=== PATIENT | male | born 1960 | race Caucasian/White ===

== ENCOUNTER → 2017-07-31 13:23 | Outpatient (CLI) | payer BC, SELFPAY ==
--- NOTE | 2017-07-31 13:35 | US_ITS ---
US breast RT complete COMPARISON: None INDICATION: Right axillary pain and swelling ORDERING PHYSICIAN: Salvador Meyer MD PATIENT AGE: 57 years FINDINGS: Ultrasound performed of the right axilla shows no obvious cystic lesions or masses. Lymph nodes are present with the largest node measuring 3.5 x 1.5 cm. IMPRESSION: Mildly enlarged right axillary lymph nodes otherwise negative ultrasound of the right axilla. Consider chest CT with contrast for further evaluation for adenopathy
== END ==
PROVIDERS: Family Provider Family Medicine; PCP Family Medicine; Visit Provider Family Medicine
DX: R59.0 Localized enlarged lymph nodes (principal)
CPT/HCPCS: 76641

== ENCOUNTER → 2017-09-02 08:17 | Outpatient (CLI) | payer BC, SELFPAY ==
[2017-09-02 08:47] LABS: Blood Urea Nitrogen 14 mg/dL (7-18); Creatinine,Serum 1.02 mg/dL (0.70-1.30); Estimated Glomerular Filt Rate 75 ml/min (>60); GFR (African American) 90 ML/MIN (>60)
--- NOTE | 2017-09-02 08:58 | CT_ITS ---
CT chest w con HISTORY: Axillary adenopathy, history of colon cancer ITS.REASON: AXILLARY ADENOPATHY ORDERING PHYSICIAN: Salvador Meyer MD PATIENT AGE: 57 years TECHNIQUE: Axial images obtained following the administration of 75 mL of Isovue 370 . Sagittal, and coronal reformatted images are also generated and reviewed. COMPARISON: None FINDINGS: No mediastinal or hilar mass or adenopathy is evident. Normal heart size. No evidence of pericardial effusion. No suspicious pulmonary nodules are evident. There is a small faint opacity in the left upper lobe centrally at 4 mm. Mild dependent changes are present in the posterior hemithoraces bilaterally. No effusions. Upper abdominal images are unremarkable. No axillary adenopathy is evident. There are small lymph nodes in the axilla on both sides. There is minimal stranding of the fat in the right axilla nonspecific. No bony destructive process. Upper abdominal images are unremarkable. IMPRESSION: 1. No axillary or mediastinal or hilar adenopathy. 2. Faint 4 mm nodular opacity left upper lobe centrally nonspecific. Consider 6-12 month follow-up to confirm stability. 3. Otherwise negative CT chest
--- NOTE | 2017-09-02 10:31 | HMH.ITSHM ---
AMLODIPINE MELOXICAM PRAVASTATIN NORECO
== END ==
PROVIDERS: Family Provider Family Medicine; PCP Family Medicine; Visit Provider Family Medicine
DX: R59.0 Localized enlarged lymph nodes (principal)
CPT/HCPCS: 36415; 71260; 82565; 84520; Q9967

== ENCOUNTER 2018-02-01 13:03 | Observation (INO) ==
[2018-02-01 13:20] LABS: Basophils # 0.1 K/mm3 (0-0.2); Basophils % 0.6 % (0.1-2.0); Eosinophils % 0.3 % (0.1-12.0); Hemoglobin 15.6 g/dL (14.1-18.0); Lymphocytes % 18.4 K/mm3 (10-50); Mean Corpuscular Hemoglobin 32.9 pg (27.0-31.2); Mean Corpuscular Volume 86.6 fl (80-94); Mean Platelet Volume 6.7 fl (7.4-10.4); Monocytes # 0.5 K/mm3 (0.1-1.0); Monocytes % 4.9 % (1.7-9.3); Neutrophils # 8.3 K/mm3 (1.8-7.8); Neutrophils % 75.9 % (37.0-80.0); Platelet Count 363 K/mm3 (142-424); Red Blood Count 4.74 M/mm3 (4.60-6.20); Red Cell Distribution Width 12.9 % (11.5-17.5); White Blood Count 10.9 K/mm3 (4.8-10.8)
[2018-02-01 13:20] LABS: Appearance,Urine SL CLOUDY (Clear); Bilirubin,Urine Negative (Negative); Blood, Urine 3+ (Negative); Color,Urine YELLOW (Yellow); Glucose,Urine (UA) Negative (Negative); Ketones,Urine Negative (Negative); Leukocyte Esterase,Urine Negative (Negative); Microscopic, Urine URINE MICROSCOPIC (MICROSCOPIC); Protein,Urine Negative (Negative); Specific Gravity, Urine 1.025 (1.005-1.030); Urobilinogen,Urine 0.2 EU/dl (0.2)
[2018-02-01 13:27] LABS: Bacteria,Urine 1+ /lpf; Mucus,Urine 1+ /lpf; RBC,Urine 20-50 #/hpf (0-3); Squamous Epithelial Cell,Urine Occasional #/hpf (0-5); WBC,Urine Occasional #/hpf (0-3)
[2018-02-01 13:34] LABS: Albumin Level 4.6 gm/dL (3.4-5.0); Albumin/Globulin Ratio 1.1 (1.1-1.8); Anion Gap 14.9 mEq/L (5-15); Bilirubin,Total 0.5 mg/dL (0.2-1.0); Calcium 9.5 mg/dL (8.5-10.1); Globulin 4.3 gm/dl (1.3-3.2); Potassium 3.9 mmoL/L (3.5-5.1); Total Protein,Serum 8.9 gm/dL (6.4-8.2)
--- NOTE | 2018-02-01 14:51 | Emergency Department Note ---
ED Disposition Clinical Impression: Ureteral stone with hydronephrosis, Intractable pain Disposition: Still a Patient Condition on Discharge: Fair Instructions: DI for Acute Abdomen Referrals: Salvador Meyer MD [Primary Care Provider] - - Critical Care Critical Care Time: No Attestation: On 02/01/18, the high probability of a clinically significant, sudden or life threatening deterioration of the following system(s) required my full and direct attention, intervention and personal management. The time I documented below is in addition to time spent performing reported procedures but includes the following listed in this critical care notation. Medical Decision Making - Devendra Inquiry Pt receiving controlled substance: No Devendra was queried for this patient: No Vital Signs: 02/01/18 13:04 02/01/18 14:04 02/01/18 14:30 Temperature 98.1 F Temperature Source Oral Pulse Rate [Right Brachial] 89 67 66 Respiratory Rate 18 18 20 Blood Pressure [Right Arm] 157/96 152/83 136/67 Blood Pressure Mean [Right Arm] 116 106 90 Blood Pressure Source [Right Arm] Automatic Cuff Automatic Cuff Automatic Cuff Blood Pressure Position [Right Arm] Sitting Sitting Sitting 02 Sat by Pulse Oximetry 98 99 98 Oxygen Delivery Method Room Air Room Air Room Air - Lab Data Lab Results 02/01/18 13:10: Urine Color Yellow, Urine Appearance Sl cloudy, Urine pH 6.0, Ur Specific [place] 1.025, Urine Protein Negative, Urine Glucose (UA) Negative, Urine Ketones Negative, Urine Blood 3+, Urine Nitrate Negative, Urine Bilirubin Negative, Urine Urobilinogen 0.2, Ur Leukocyte Esterase Negative, Urine RBC 20- 50, Urine WBC Occasional, Ur Squamous Epith Cells Occasional, Urine Bacteria 1+ , Urine Mucus 1+ 02/01/18 13:11: WBC 10.9 H, RBC 4.74, Hgb 15.6, Hct 41.0 L, MCV 86.6, MCH 32.9 H , MCHC 38.0 H, RDW 12.9, Plt Count 363, MPV 6.7 L, Neut % (Auto) 75.9, Lymph % ( Auto) 18.4, [place] % (Auto) 4.9, Eos % (Auto) 0.3, Baso % (Auto) 0.6, Neut # (Auto ) 8.3 H, Lymph # (Auto) 2.0, [place] # (Auto) 0.5, Eos # (Auto) 0.0, Baso # (Auto) 0.1 02/01/18 13:13: Sodium 141, Potassium 3.9, Chloride 105, Carbon Dioxide 25, Anion Gap 14.9, BUN 14, Creatinine 1.13, Estimated Creat Clear 95, Estimated GFR 66, Est GFR ( Amer) 80, Glucose 143 H, Calcium 9.5, Total Bilirubin 0.5, AST 12 L, ALT 28, Alkaline Phosphatase 90, Total Protein 8.9 H, Albumin 4.6 , Globulin 4.3 H, Albumin/Globulin Ratio 1.1 Result diagrams: 02/01/18 13:11 02/01/18 13:13 Orders (Tests/Meds): ED MEDICATIONS Discontinued Medications Generic Name Dose Route Start Last Admin Trade Name Freq PRN Reason Stop Dose Admin Ketorolac Tromethamine 30 mg 02/01/18 13:35 02/01/18 13:25 Toradol 30mg/Ml Vial IV 02/01/18 13:36 30 mg ONCE ONE Administration Morphine Sulfate 4 mg 02/01/18 13:35 02/01/18 13:25 Morphine 4mg/Ml Syringe IV 02/01/18 13:36 4 mg ONCE ONE Administration Ondansetron HCl 4 mg 02/01/18 13:35 02/01/18 13:35 Zofran 4mg/2ml Vial IV 02/01/18 13:36 4 mg ONCE ONE Administration - CT Data CT Scan: Abdomen, Pelvis Time Received: 14:[address] Reviewed: Yes: I have viewed the radiologist's interpretation Preliminary Findings: Normal/NAD Medical Decision Narrative: Patient had positive blood in his urine. Received Toradol with some relief followed by morphine but he continued to be in pain 4/10 had no active vomiting. I received a CT scan report below: IMPRESSION: 1. 4 mm proximal right ureteral stone with mild obstructive uropathy. 2. Bilateral nephrolithiasis After reading the CT scan above I contacted Dr. Fontenot who agreed to see the patient in consultation so I contacted Dr. Meyer for admission and pain control. Vision and his were agreeable for admission. Abdominal Pain HPI - General Chief Complaint: Abdominal Pain Stated Complaint: poss kidney stone Time Seen by Provider: 02/01/18 13:20 Mode of Arrival: Ambulatory Limitations: No Limitations Description of Symptoms (Recalled from ER Triage Doc. by RN): Pt c/o R flank pain and R lower abd pain that began today, states has hx of kidney stones. Pt denies difficulty with urination, states the only relief he gets from pain is by walking. - History of Present Illness HPI narrative: 57 years old white male with a history of nephrolithiasis who developed the sudden onset of severe 10/10 right flank pain at 10 AM this morning associated with nausea and dry heaving. No active vomiting. MD complaint: flank pain Onset (ago): hour(s) (4 hours.) Consistency: constant Location: R flank Severity: severe Severity scale (1-10): 10 Quality: dull Radiation: none Relieving factors: nothing Exacerbating factors: nothing Associated symptoms: nausea - Related Data Allergies Allergy/AdvReac Type Severity Reaction Status Date / Time Penicillins [PENICILLINS] Allergy Unknown Verified 02/01/18 13:39 [facility] History I have reviewed the patient's past medical history: Yes Medical History: Denies:: Diabetes Mellitus Type 1, Diabetes Mellitus Type 2 - Social History Alcohol Intake: never - Psychiatric History Expresses thoughts of harming self/others: None Suicide Plan Description: No Plan ROS Obtained: Yes All systems reviewed & no additional complaints Physical Exam - General General appearance: alert, in no apparent distress - Head Head exam: atraumatic, normocephalic, normal inspection - Eye Eye exam: Present: normal appearance, PERRL, EOMI. Absent: scleral icterus, nystagmus - ENT ENT exam: Present: normal exam, normal oropharynx, mucous membranes moist, TM's normal bilaterally, normal external ear exam - Neck Neck exam: Present: normal inspection, full ROM, trachea midline. Absent: tenderness, meningismus, lymphadenopathy - Chest Chest inspection: Present: normal inspection, symmetric chest wall rise. Absent : tenderness - Respiratory Respiratory exam: Present: normal lung sounds bilaterally. Absent: respiratory distress - Cardiovascular Cardiovascular exam: Present: regular rate, normal rhythm, normal heart sounds. Absent: JVD - Abdominal Exam Abdominal exam: Present: soft, tenderness, normal bowel sounds. Absent: distention, guarding, rebound, rigidity, Eddy's sign, tenderness at McBurney' s Point - exam: Present: normal inspection, normal testicular lie, circumcised. Absent : testicular tenderness, urethral discharge, scrotal swelling - Extremities Exam Extremities exam: Present: normal inspection, full ROM, normal capillary refill. Absent: tenderness, calf tenderness - Back Exam Back exam: Present: normal inspection, CVA tenderness (R). Absent: tenderness, CVA tenderness (L) - Neurological Exam Neurological exam: Present: alert, oriented X3, CN II-XII intact, motor sensory deficit, reflexes normal - Psychiatric Psychiatric exam: Present: normal affect, normal mood - Skin Skin exam: Present: warm, dry, intact, normal color - Lymphatic Lymphatic Findings: no adenopathy
--- NOTE | 2018-02-01 15:21 | Pharmacy Consult Notes ---
[facility] Pharmacy VTE Monitoring - Patient Demographics Admission date: 02/01/18 Report Date: 02/01/18 Time: 15:20 Allergies/Adverse Reactions: Patient Allergies Penicillins [PENICILLINS] Allergy (Unknown, Verified 02/01/18 13:39) Height: 1.73 m Weight: 95.254 kg Patient Problems: Current Active Problems Ureteral stone with hydronephrosis (Acute) Intractable pain (Acute) - VTE Risk Labs: VTE Related Lab Results Hgb 15.6 g/dL (14.1-18.0) 02/01/18 13:11 Hct 41.0 % (42.0-52.0) L 02/01/18 13:11 Plt Count 363 K/mm3 (142-424) 02/01/18 13:11 BUN 14 mg/dL (7-18) 02/01/18 13:13 Creatinine 1.13 mg/dL (0.70-1.30) 02/01/18 13:13 Estimated Creat Clear 95 mL/min (0-300) 02/01/18 13:13 - Prophylaxis VTE Prophylaxis Ordered?: Yes Types of VTE Prophylaxis: TEDS Knee High Location of Applied Device: Bilateral Lower Extremeties
--- NOTE | 2018-02-01 15:34 | History & Physical Report ---
*Admission Date: 02/01/18 *Chief complaint: right flank pain *History of present illness: Mr Avendano is a 57 years old white male with a history of restless legs and chronic leg pain, hypertension, colon cancer and nephrolithiasis who developed a sudden onset of severe 10/10 right flank pain at 10 AM this morning associated with nausea and dry heaving without active vomiting. Patient initially thought he was constipated and took Linzess without any results. Pain then moved to his back at which time he felt like he had a kidney stone. Time he got to the emergency room the pain was very severe. With evaluation in the emergency room patient was found to have a 4 mm stone in the right ureter. He was given Ketorolac, morphine and finally Dilaudid which finally relieved his pain. He also had some Zofran. He was then admitted for further evaluation and treatment with a urology consult with Dr. Larson for the a.m. At the time of this exam patient is comfortable is not nauseated and is hungry for dinner. [facility] History Medical History: Reports:: Hyperlipidemia, Hypertension, Kidney Stones, Migraine Denies:: BPH, Diabetes Mellitus Type 1, Diabetes Mellitus Type 2, Seizures Comment: He has had surgery, lipoma over right mastoid removal 2009, laminectomy in 2013, laparoscopic partial right hemicolectomy for colon cancer in 2015, right ear surgery with lipoma removed per Dr. García 2017 - *Social History Educational Level: Completed High School Smoking Status: Never smoker Alcohol Intake: never - Psychiatric History Expresses thoughts of harming self/others: None Suicide Plan Description: No Plan *Family Hx:: Cancer, Diabetes, Hypertension Review of Systems - Constitutional Denies chills, Denies fever(s) - ENT Denies ear pain, Denies headache(s), Denies nasal congestion, Denies sore throat - *Cardiovascular Denies chest pain, Denies shortness of breath, Denies leg swelling - *Respiratory Denies chest congestion, Denies cough, Denies shortness of breath, Denies coughing up blood - *Gastrointestinal Reports abdominal pain, Reports nausea, Denies change in bowel habits, Denies change in stools, Denies constipation, Denies heartburn, Denies vomiting blood, Denies vomiting - *Genitourinary Reports side pain, Denies difficulty urinating, Denies painful urination, Denies blood in urine, Denies urinary frequency, Denies urinary urgency - *Musculoskeletal Reports back pain, Denies abnormal walking Comments: Bilateral leg pain with restless leg syndrome - *Neurologic Reports headache(s), Denies abnormal walking, Denies abnormal movements, Denies behavioral changes, Denies seizure-like activity, Denies dizziness, Denies frequent falls Meds Home Medications Medication Instructions Recorded Confirmed Type Amlodipine Besylate [Amlodipine 10 mg PO DAILY 02/01/18 02/01/18 History 10mg Tab] Buprenorphine [Butrans] 10 meq TRANSTRACH WEEKLY 02/01/18 02/01/18 History Hydrocodone/Acetaminophen 7.35 - 325 mg PO NEEDED PRN 02/01/18 02/01/18 History [Hydrocodone-Acetamin 7.5-325] Meloxicam 10 mg PO DAILY 02/01/18 02/01/18 History Pravastatin Sodium [Pravachol] 20 mg PO DAILY 02/01/18 02/01/18 History Allergies Allergy/AdvReac Type Severity Reaction Status Date / Time Penicillins [PENICILLINS] Allergy Unknown Verified 02/01/18 13:39 Exam Vital signs and Labs for Last 24 Hours: Temp Pulse Resp BP Pulse Ox 98.0 F 74 18 127/76 98 02/01/18 15:22 02/01/18 15:22 02/01/18 15:22 02/01/18 15:22 02/01/18 14:30 Laboratory Results - last 24 hr 02/01/18 13:10: Urine Color Yellow, Urine Appearance Sl cloudy, Urine pH 6.0, Ur Specific [place] 1.025, Urine Protein Negative, Urine Glucose (UA) Negative, Urine Ketones Negative, Urine Blood 3+, Urine Nitrate Negative, Urine Bilirubin Negative, Urine Urobilinogen 0.2, Ur Leukocyte Esterase Negative, Urine RBC 20- 50, Urine WBC Occasional, Ur Squamous Epith Cells Occasional, Urine Bacteria 1+ , Urine Mucus 1+ 02/01/18 13:11: WBC 10.9 H, RBC 4.74, Hgb 15.6, Hct 41.0 L, MCV 86.6, MCH 32.9 H , MCHC 38.0 H, RDW 12.9, Plt Count 363, MPV 6.7 L, Neut % (Auto) 75.9, Lymph % ( Auto) 18.4, [place] % (Auto) 4.9, Eos % (Auto) 0.3, Baso % (Auto) 0.6, Neut # (Auto ) 8.3 H, Lymph # (Auto) 2.0, [place] # (Auto) 0.5, Eos # (Auto) 0.0, Baso # (Auto) 0.1 02/01/18 13:13: Sodium 141, Potassium 3.9, Chloride 105, Carbon Dioxide 25, Anion Gap 14.9, BUN 14, Creatinine 1.13, Estimated Creat Clear 95, Estimated GFR 66, Est GFR ( Amer) 80, Glucose 143 H, Calcium 9.5, Total Bilirubin 0.5, AST 12 L, ALT 28, Alkaline Phosphatase 90, Total Protein 8.9 H, Albumin 4.6 , Globulin 4.3 H, Albumin/Globulin Ratio 1.1 I & O for Last 24 hours: Intake & Output 01/30/18 01/31/18 02/01/18 02/02/18 11:59 11:59 11:59 11:59 Intake Total 1000 / 1000 Balance 1000 / 1000 Weight 210 lb Radiology Reports for the Last 24 Hours: CT of abdomen/pelvis 02/01/18 IMPRESSION: 1. 4 mm proximal right ureteral stone with mild obstructive uropathy. 2. Bilateral nephrolithiasis - Constitutional no acute distress Comments: Appears comfortable and states he is comfortable - *Routine HEENT Exam Head: Present: normocephalic, atraumatic Eye: Present: PERRL. Absent: conjunctival icterus, scleral injection ENT: Present: mucous membranes moist - *Routine Neck Exam Present: supple, full ROM. Absent: carotid bruit, lymphadenopathy, thyromegaly - *Routine Respiratory Exam Present: CTA bilaterally (Anteriorly and posteriorly) - *Routine Cardiovascular Exam Present: RRR - *Routine Abdominal Exam Present: soft, normoactive bowel sounds. Absent: tenderness, distended, guarding - *Routine Extremities Exam Present: calf tenderness (Bilaterally). Absent: edema - *Routine Neurological Exam Present: alert, oriented X3 H&P: Result - Labs Labs: Short CBC 02/01/18 Range/Units 13:11 WBC 10.9 H (4.8-10.8) K/mm3 Hgb 15.6 (14.1-18.0) g/dL Hct 41.0 L (42.0-52.0) % Plt Count 363 (142-424) K/mm3 BMP 02/01/18 13:13 Sodium 141 Potassium 3.9 Chloride 105 Carbon Dioxide 25 BUN 14 Creatinine 1.13 Glucose 143 H Calcium 9.5 Liver Function 02/01/18 Range/Units 13:13 Total Bilirubin 0.5 (0.2-1.0) mg/dL AST 12 L (15-37) U/L ALT 28 (12-78) U/L Alkaline Phosphatase 90 (46-116) U/L Albumin 4.6 (3.4-5.0) gm/dL Urine 02/01/18 Range/Units 13:10 Urine Color Yellow (Yellow) Urine Appearance Sl cloudy (Clear) Urine pH 6.0 (5.0-8.5) Ur Specific [place] 1.025 (1.005-1.030) Urine Protein Negative (Negative) Urine Glucose (UA) Negative (Negative) Assessment and Plan (1) Ureteral stone with hydronephrosis Current visit: Yes Status: Acute Category: Medical Code(s): N13.2 - Hydronephrosis with renal and ureteral calculous obstruction (2) Intractable pain Current visit: Yes Status: Acute Category: Medical Code(s): R52 - Pain, unspecified (3) Hypertension Current visit: Yes Status: Chronic Category: Medical Code(s): I10 - Essential (primary) hypertension (4) Restless leg syndrome Current visit: Yes Status: Chronic Category: Medical Code(s): G25.81 - Restless legs syndrome - Assessment and plan all Dx Assessment and Plan for all problems:: IV fluids. Urology consult. Pain management.
[2018-02-02 06:50] LABS: Basophils # 0.1 K/mm3 (0-0.2); Basophils % 0.5 % (0.1-2.0); Eosinophils # 0.1 K/mm3 (0.0-0.4); Eosinophils % 0.7 % (0.1-12.0); Hematocrit 42.5 % (42.0-52.0); Hemoglobin 14.4 g/dL (14.1-18.0); Lymphocytes # 2.1 K/mm3 (0.7-4.5); Lymphocytes % 16.6 K/mm3 (10-50); Mean Corpuscular HGB Conc 33.8 g/dL (31.8-35.4); Mean Corpuscular Hemoglobin 29.3 pg (27.0-31.2); Mean Corpuscular Volume 86.5 fl (80-94); Mean Platelet Volume 6.6 fl (7.4-10.4); Monocytes # 0.9 K/mm3 (0.1-1.0); Monocytes % 7.1 % (1.7-9.3); Neutrophils # 9.3 K/mm3 (1.8-7.8); Neutrophils % 75.1 % (37.0-80.0); Platelet Count 295 K/mm3 (142-424); Red Blood Count 4.91 M/mm3 (4.60-6.20); Red Cell Distribution Width 13.1 % (11.5-17.5); White Blood Count 12.4 K/mm3 (4.8-10.8)
[2018-02-02 06:57] LABS: Anion Gap 12.2 mEq/L (5-15); Potassium 3.2 mmoL/L (3.5-5.1)
[2018-02-02 07:10] LABS: Calcium 8.5 mg/dL (8.5-10.1)
--- NOTE | 2018-02-02 08:20 | Progress Note ---
Internal Medicine - PN: Subj *Date: 02/02/18 *Time: 08:17 Interval history: Persisted with right flank and RLQ pain through the night. Not getting relief with Morphine. Exam Vital signs and Labs for Last 24 Hours: Temp Pulse Resp BP Pulse Ox 98.4 F 65 20 129/77 95 02/02/18 07:37 02/02/18 07:37 02/02/18 07:37 02/02/18 07:37 02/02/18 07:49 Laboratory Results - last 24 hr 02/01/18 13:10: Urine Color Yellow, Urine Appearance Sl cloudy, Urine pH 6.0, Ur Specific [place] 1.025, Urine Protein Negative, Urine Glucose (UA) Negative, Urine Ketones Negative, Urine Blood 3+, Urine Nitrate Negative, Urine Bilirubin Negative, Urine Urobilinogen 0.2, Ur Leukocyte Esterase Negative, Urine RBC 20- 50, Urine WBC Occasional, Ur Squamous Epith Cells Occasional, Urine Bacteria 1+ , Urine Mucus 1+ 02/01/18 13:11: WBC 10.9 H, RBC 4.74, Hgb 15.6, Hct 41.0 L, MCV 86.6, MCH 32.9 H , MCHC 38.0 H, RDW 12.9, Plt Count 363, MPV 6.7 L, Neut % (Auto) 75.9, Lymph % ( Auto) 18.4, [place] % (Auto) 4.9, Eos % (Auto) 0.3, Baso % (Auto) 0.6, Neut # (Auto ) 8.3 H, Lymph # (Auto) 2.0, [place] # (Auto) 0.5, Eos # (Auto) 0.0, Baso # (Auto) 0.1 02/01/18 13:13: Sodium 141, Potassium 3.9, Chloride 105, Carbon Dioxide 25, Anion Gap 14.9, BUN 14, Creatinine 1.13, Estimated Creat Clear 95, Estimated GFR 66, Est GFR ( Amer) 80, Glucose 143 H, Calcium 9.5, Total Bilirubin 0.5, AST 12 L, ALT 28, Alkaline Phosphatase 90, Total Protein 8.9 H, Albumin 4.6 , Globulin 4.3 H, Albumin/Globulin Ratio 1.1 02/02/18 06:29: WBC 12.4 H, RBC 4.91, Hgb 14.4, Hct 42.5, MCV 86.5, MCH 29.3, MCHC 33.8, RDW 13.1, Plt Count 295, MPV 6.6 L, Neut % (Auto) 75.1, Lymph % (Auto ) 16.6, [place] % (Auto) 7.1, Eos % (Auto) 0.7, Baso % (Auto) 0.5, Neut # (Auto) 9.3 H, Lymph # (Auto) 2.1, [place] # (Auto) 0.9, Eos # (Auto) 0.1, Baso # (Auto) 0.1 02/02/18 06:29: Sodium 140, Potassium 3.2 L, Chloride 105, Carbon Dioxide 26, Anion Gap 12.2, BUN 9 D, Creatinine 1.04, Estimated Creat Clear 97, Estimated GFR 73, Est GFR ( Amer) 88, Glucose 129 H, Calcium 8.5 D I & O for Last 24 hours: Intake & Output 01/30/18 01/31/18 02/01/18 02/02/18 11:59 11:59 11:59 11:59 Intake Total 2345 / 2345 Balance 2345 / 2345 Weight 198 lb 8 oz - Constitutional mild distress - *Routine Respiratory Exam Present: CTA bilaterally - *Routine Cardiovascular Exam Present: RRR - *Routine Abdominal Exam Present: tenderness (RLQ) Assessment and Plan (1) Ureteral stone with hydronephrosis Current visit: Yes Status: Acute Category: Medical Code(s): N13.2 - Hydronephrosis with renal and ureteral calculous obstruction (2) Intractable pain Current visit: Yes Status: Acute Category: Medical Code(s): R52 - Pain, unspecified (3) Hypertension Current visit: Yes Status: Chronic Category: Medical Code(s): I10 - Essential (primary) hypertension (4) Restless leg syndrome Current visit: Yes Status: Chronic Category: Medical Code(s): G25.81 - Restless legs syndrome - Assessment and plan all Dx Assessment and Plan for all problems:: Will change to Dilaudid as it worked better yesterday. Urology consult today.
--- NOTE | 2018-02-02 14:55 | Progress Note ---
[facility] Anesthesia Checklist - Patient Identification Patient Identification: Arm Band - Structural Data Admitted From: Inpatient Planned Operative Procedure/s: cystoscopy with right ureteral stent placement Consent for Planned Operative Procedure(s) Verified: Yes Verified Documents: Surgical Consent, History and Physical - NPO Status Verified Time NPO: 00:00 - Additional verifications Anesthesia Reactions: No - Airway Assessment C-Spine Mobility Assessed: Yes (mp2) TMJ Mobility Assessed: Yes Dentition: Good Dentition - Neurological Assessment Level of Consciousness: Awake, Alert - Anesthesia Plan Anesthesia Risk discussed: Yes Anesthesia Plan: Verified ASA Class: II Anesthesia Type: General [facility] Anesthesia HX I have reviewed the patient's past medical history: Yes Medical History: Reports:: Cancer (colon), Hyperlipidemia, Hypertension, Kidney Stones, Migraine Denies:: BPH, Diabetes Mellitus Type 1, Diabetes Mellitus Type 2, Internal Pacemaker, MRSA, Seizures Other Medical History: Reports: Arthritis, Hormone Therapy Laterality Cases: Left: Arthroscopy Knee, Bilateral: Tonsillectomy Other Surgeries: Yes: Colon Resection, Other (back sx, lipoma removed). No: Pacemaker Amputation: No Fractures: No *Family Hx:: Cancer, Diabetes, Hypertension
--- NOTE | 2018-02-02 14:56 | Progress Note ---
[facility] Anesthesia Record Part II Discharge Time: 15:20 Destination: 2nd floor PACU nurse assessment reviewed?: Yes Patient Condition:: Good Anesthesia Complications:: None
--- NOTE | 2018-02-02 14:56 | Progress Note ---
[facility] Anesthesia Record Part I Intake, IV Amount: 800 Estimated blood loss (mL): 0 Urine output (mL): 0 Blood Pressure: 93/44 SaO2: 95 Pulse Rate: 62 Respiratory Rate: 16 Temperature: 98.3 F Patient is:: Drowsy, Stable Stable to PACU at:: 14:50
--- NOTE | 2018-02-02 18:03 | Consult Report ---
*Admission Date: 02/01/18 *Chief complaint: Right ureteral calculus *History of present illness: Patient presented to the emergency room last evening with acute onset of right flank pain. He had nausea and emesis. His symptoms began a few days earlier and he thought it perhaps was colon in nature. He then developed severe right lower quadrant and right flank pain with nausea and emesis. He had a CT scan which demonstrated a 4 mm stone proximal right ureter. He had 2 additional 4 mm stones in the right kidney. Was admitted for pain control. He has previous history of urolithiasis. It is been several years since his last visit with me. His pain is controlled with IV pain medication. We discussed options including ureteral stent placement. Considering his additional stones I suggest temporize ureteral stent followed by elective shockwave lithotripsy of all the stones. Due to the location of the proximal stone this should be a safer clinical outcome. Stands and wished to proceed. Allergies penicillin Chronic medications list Physical exam he is comfortable. He has moderate right CVA tenderness palpation. Impression right ureteral stone with right renal calculi. Plan as above. We will arrange for cystoscopy and right ureteral stent placement as scheduling allows. He did consume breakfast. We will need to postpone this from an anesthesia standpoint. Review of Systems - *Neurologic Reports headache(s), Denies abnormal walking, Denies abnormal movements, Denies behavioral changes, Denies seizure-like activity, Denies dizziness, Denies frequent falls [facility] History Medical History: Reports:: Cancer (colon), Hyperlipidemia, Hypertension, Kidney Stones, Migraine Denies:: BPH, Diabetes Mellitus Type 1, Diabetes Mellitus Type 2, Internal Pacemaker, MRSA, Seizures Other Medical History: Reports: Arthritis, Hormone Therapy Laterality Cases: Left: Arthroscopy Knee, Bilateral: Tonsillectomy Other Surgeries: Yes: Colon Resection, Other (back sx, lipoma removed). No: Pacemaker Amputation: No Fractures: No - *Social History Educational Level: Completed High School Smoking Status: Never smoker Alcohol Intake: never Occupational Status: employed Housing: house Household Members: spouse, children - Psychiatric History Expresses thoughts of harming self/others: None Suicide Plan Description: No Plan *Family Hx:: Cancer, Diabetes, Hypertension Meds Home Medications Medication Instructions Recorded Confirmed Type Amlodipine Besylate [Amlodipine 10 mg PO DAILY 02/01/18 02/01/18 History 10mg Tab] Buprenorphine [Butrans] 10 meq TRANSTRACH WEEKLY 02/01/18 02/01/18 History Hydrocodone/Acetaminophen 7.35 - 325 mg PO Q4HP PRN 02/01/18 02/02/18 History [Hydrocodone-Acetamin 7.5-325] Meloxicam 15 mg PO DAILY 02/01/18 02/02/18 History Pravastatin Sodium [Pravachol] 20 mg PO HS 02/01/18 02/02/18 History Allergies Allergy/AdvReac Type Severity Reaction Status Date / Time Penicillins [PENICILLINS] Allergy Unknown Verified 02/01/18 13:39 Exam Vital signs and Labs for Last 24 Hours: Temp Pulse Resp BP Pulse Ox 98.0 F 68 14 140/86 100 02/02/18 15:20 02/02/18 15:20 02/02/18 15:20 02/02/18 15:20 02/02/18 15:20 Laboratory Results - last 24 hr 02/02/18 06:29: WBC 12.4 H, RBC 4.91, Hgb 14.4, Hct 42.5, MCV 86.5, MCH 29.3, MCHC 33.8, RDW 13.1, Plt Count 295, MPV 6.6 L, Neut % (Auto) 75.1, Lymph % (Auto ) 16.6, [place] % (Auto) 7.1, Eos % (Auto) 0.7, Baso % (Auto) 0.5, Neut # (Auto) 9.3 H, Lymph # (Auto) 2.1, [place] # (Auto) 0.9, Eos # (Auto) 0.1, Baso # (Auto) 0.1 02/02/18 06:29: Sodium 140, Potassium 3.2 L, Chloride 105, Carbon Dioxide 26, Anion Gap 12.2, BUN 9 D, Creatinine 1.04, Estimated Creat Clear 97, Estimated GFR 73, Est GFR ( Amer) 88, Glucose 129 H, Calcium 8.5 D I & O for Last 24 hours: Intake & Output 01/30/18 01/31/18 02/01/18 02/02/18 23:59 23:59 23:59 23:59 Intake Total 1000 / 1000 2145 / 2145 Output Total 1461 / 1461 Balance 1000 / 1000 684 / 684 Weight 90.038 kg Results - Labs 02/02/18 06:29 02/02/18 06:29 Laboratory Results - last 24 hr 02/02/18 06:29: WBC 12.4 H, RBC 4.91, Hgb 14.4, Hct 42.5, MCV 86.5, MCH 29.3, MCHC 33.8, RDW 13.1, Plt Count 295, MPV 6.6 L, Neut % (Auto) 75.1, Lymph % (Auto ) 16.6, [place] % (Auto) 7.1, Eos % (Auto) 0.7, Baso % (Auto) 0.5, Neut # (Auto) 9.3 H, Lymph # (Auto) 2.1, [place] # (Auto) 0.9, Eos # (Auto) 0.1, Baso # (Auto) 0.1 02/02/18 06:29: Sodium 140, Potassium 3.2 L, Chloride 105, Carbon Dioxide 26, Anion Gap 12.2, BUN 9 D, Creatinine 1.04, Estimated Creat Clear 97, Estimated GFR 73, Est GFR ( Amer) 88, Glucose 129 H, Calcium 8.5 D Assessment and Plan (1) Ureteral stone with hydronephrosis Current visit: Yes Status: Acute Category: Medical Code(s): N13.2 - Hydronephrosis with renal and ureteral calculous obstruction (2) Intractable pain Current visit: Yes Status: Acute Category: Medical Code(s): R52 - Pain, unspecified (3) Hypertension Current visit: Yes Status: Chronic Category: Medical Code(s): I10 - Essential (primary) hypertension (4) Restless leg syndrome Current visit: Yes Status: Chronic Category: Medical Code(s): G25.81 - Restless legs syndrome
--- NOTE | 2018-02-02 18:07 | Operative Note ---
Date of procedure: 02/02/18 Pre-op Diagnosis:: Right ureteral calculus Post-op Diagnosis:: Same Procedure performed:: Cystoscopy with right ureteral stent placement Surgeon:: Pete Larson MD DENIER CONTROL OPERATOR:: Fab Mendieta Anesthesia: GETA Estimated blood loss (mL): 0 Clinical Note:: Patient admitted last evening with a 4 mm right proximal ureteral stone. Due to persistence of pain nausea and emesis we elected to temporize him with a right ureteral stent. He has 2 additional 4 mm stones in the right kidney. We will anticipate shockwave lithotripsy on and schedule basis. Operative findings:: Right proximal ureteral stone Operative note:: After satisfactory general anesthesia is placed in the dorsolithotomy position. Genital area was prepped and draped in standard fashion. 22 Lithuanian cystoscope sheath was introduced under direct vision with the 30 lens. Urethra was unremarkable prostate moderately obstructing with trilobar hypertrophy. Right ureteral orifice was cannulated with a 5 Lithuanian open ureteral catheter. Ureteral catheter was advanced to the proximal ureter where the stone was manipulated back to the kidney. 0.035 zip wire was then passed through the ureteral catheter. Stent was placed. There is a good coil in the kidney and colon and bladder. String was removed. Bladder strain cystoscope removed. Xylocaine jelly was instilled in the urethra. Patient was awake and expect transferred to postop recovery in stable condition. He will likely be discharged home later today. We will arrange for right shockwave lithotripsy and cystoscopy with stent removal at [facility]. Was given a prescription for Bactrim double strength twice daily #10 days. Condition: stable Disposition: PACU Specimens:: None Complications:: None
--- NOTE | 2018-02-04 15:39 | Discharge Summary ---
General - General Admission date:: 02/01/18 <Salvador Meyer - 02/06/18 08:31> 02/01/18 <Heavenly Lagos - 02/04/18 15:42> Discharge date: 02/02/18 <Heavenly Lagos - 02/04/18 15:42> HPI HPI: Mr. Avendano is a 57 year old white male with a history of restless legs and chronic leg pain, hypertension, colon cancer and nephrolithiasis who developed a sudden onset of severe 10/10 right flank pain at 10 AM this morning associated with nausea and dry heaving without active vomiting. Patient initially thought he was constipated and took Linzess without any results. Pain then moved to his back at which time he felt like he had a kidney stone. By the time he got to the emergency room the pain was very severe. With evaluation in the emergency room patient was found to have a 4 mm stone in the right ureter. He was given Ketorolac, morphine and finally Dilaudid which relieved his pain. He also had some Zofran. He was then admitted for further evaluation and treatment with a urology consult with Dr. Larson for the a.m. At the time of this exam patient is comfortable is not nauseated and is hungry for dinner. <Heavenly Lagos - 02/04/18 15:42> Hospital Course Hospital Course: The patient was seen in consultation by Dr. Larson who performed a cystoscopy with right ureteral stent placement. The patient was stable to be discharged home and will f/u with Dr. Larson. <Heavenly Lagos - 02/04/18 15:42> Objective Vital signs: Temp Pulse Resp BP Pulse Ox 98.4 F 78 18 145/84 97 02/02/18 17:45 02/02/18 17:45 02/02/18 17:45 02/02/18 17:45 02/02/18 17:45 <Salvador Meyer - 02/06/18 08:31> Temp Pulse Resp BP Pulse Ox 98.4 F 78 18 145/84 97 02/02/18 17:45 02/02/18 17:45 02/02/18 17:45 02/02/18 17:45 02/02/18 17:45 <Heavenly Lagos 02/04/18 15:42> Narrative: - Constitutional no acute distress Comments: Appears comfortable and states he is comfortable - *Routine HEENT Exam Head: Present: normocephalic, atraumatic Eye: Present: PERRL. Absent: conjunctival icterus, scleral injection ENT: Present: mucous membranes moist - *Routine Neck Exam Present: supple, full ROM. Absent: carotid bruit, lymphadenopathy, thyromegaly - *Routine Respiratory Exam Present: CTA bilaterally (Anteriorly and posteriorly) - *Routine Cardiovascular Exam Present: RRR - *Routine Abdominal Exam Present: soft, normoactive bowel sounds. Absent: tenderness, distended, guarding - *Routine Extremities Exam Present: calf tenderness (Bilaterally). Absent: edema - *Routine Neurological Exam Present: alert, oriented X3 <Heavenly Lagos - 02/04/18 15:42> DS: Diagnosis - Discharge Diagnosis (1) Ureteral stone with hydronephrosis Status: Acute (2) Intractable pain Status: Acute (3) Hypertension Status: Chronic (4) Restless leg syndrome Status: Chronic <Heavenly Lagos - 02/04/18 11:00> (1) Ureteral stone with hydronephrosis Status: Acute (2) Intractable pain Status: Acute (3) Hypertension Status: Chronic (4) Restless leg syndrome Status: Chronic <Salvador Meyer - 02/06/18 08:31> Discharge Plan - Patient Discharge Instructions ACTIVITY: Continue current activity <Heavenly Lagos - 02/04/18 15:42> DIET: continue same diet <Heavenly Lagos - 02/04/18 15:42> Patient Instructions: DI for Kidney Stones <Salvador Meyer - 08:31> Forms: <Salvador Meyer - 02/06/18 08:31> - Follow up Plan Follow up with: Pete Larson MD [Staff Physician] - <Salvador Meyer - 02/06/18 08:31> Disposition: Home, Self-Care <Salvador Meyer - 02/06/18 08:31> Home Medications: Home Medications Medication Instructions Recorded Confirmed Type Amlodipine Besylate [Amlodipine 10 mg PO DAILY 02/01/18 02/01/18 History 10mg Tab] Buprenorphine [Butrans] 10 meq TRANSTRACH WEEKLY 02/01/18 02/01/18 History Hydrocodone/Acetaminophen 7.35 - 325 mg PO Q4HP PRN 02/01/18 02/02/18 History [Hydrocodone-Acetamin 7.5-325] Meloxicam 15 mg PO DAILY 02/01/18 02/02/18 History Pravastatin Sodium [Pravachol] 20 mg PO HS 02/01/18 02/02/18 History <Salvador Meyer - 02/06/18 08:31> Prescriptions/Medication Reconciliation: Continue Meloxicam 15 mg PO DAILY Hydrocodone/Acetaminophen [Hydrocodone-Acetamin 7.5-325] 7.35 - 325 mg PO Q4HP PRN PRN Reason: PAIN Buprenorphine [Butrans] 10 meq TRANSTRACH WEEKLY Amlodipine Besylate [Amlodipine 10mg Tab] 10 mg PO DAILY Pravastatin Sodium [Pravachol] 20 mg PO HS <Salvador Meyer - 08:31> - Additional Information Additional Information: Concur with plan for discharge as outlined <Salvador Meyer - 02/06/18 08:31>
== END 2018-02-02 18:15 | disposition home or self-care (01) ==
LOC: 2ND 13:03 → ER 13:03 → 2ND 15:22
PROVIDERS: ADMIT Emergency Medicine; ATTEND Family Medicine
DX: N13.2 Hydronephrosis with renal and ureteral calculous obstruction
CPT/HCPCS: 74176; 74450; 80048; 80053; 81001; 85025; 96365; 96375; 99284; C1769; C2617; G0378; J2405

== ENCOUNTER → 2018-02-16 15:41 | Outpatient (CLI) | payer BC, SELFPAY ==
--- NOTE | 2018-02-16 15:45 | CT_ITS ---
CT abdomen pelvis wo con CLINICAL INDICATION: Right flank pain, right lower quadrant pain, recent lithotripsy, right ureterolithiasis ITS.REASON: FLANK PAIN,RT URETAL CALCULUS ORDERING PHYSICIAN: Pete Larson MD PATIENT AGE: 57 years COMPARISON: 02/01/2018 TECHNIQUE: Axial images obtained with sagittal and coronal reformats. All CT scans at the facility use one or more dose reduction, viz: automated exposure control, ma/kV adjustment per patient size (including targeted exams where dose is matched to indication, i.e. head), or iterative reconstruction technique. PROCEDURE: Oral Contrast: None IV Contrast: None . FINDINGS: Of the lung bases are clear. There is diffuse fatty liver infiltration. No focal liver lesion. The gallbladder, pancreas, spleen, and adrenal glands are unremarkable. There are punctate bilateral renal calculi. There is mild right hydroureteronephrosis with mild stranding of the right periureteral fat. There are 2 small stones at the right ureterovesical junction the largest of which is approximately 3 mm and may represent the stone that was in the proximal to mid right ureter on the previous exam. There are 2 stones in the upper pole the right kidney on the previous exam which is not apparent on today's study it measured approximately 3 mm. Stones measuring up to 3 mm are present in the left kidney. There is minimal thickening of the right anterior pararenal fascia. No perirenal fluid collection evident. No perinephric hematoma No intestinal obstruction or free air or focal inflammatory change in the abdomen or pelvis. Postsurgical changes right colon No acute bony anomalies. IMPRESSION: 1. There are 2 stones now at the right ureterovesical junction with slight increase in right hydroureteronephrosis. The largest of these stones is at approximately 3 mm. Previously noted stone in the mid to proximal right ureter is not apparent on today's exam and could represent the large stone at the UVJ. 2. Bilateral nephrolithiasis
== END ==
PROVIDERS: PCP Family Medicine; Visit Provider Urology
DX: R10.84 Generalized abdominal pain; N20.1 Calculus of ureter
CPT/HCPCS: 74176

== ENCOUNTER → 2018-09-29 09:57 | Outpatient (CLI) | payer BC, SELFPAY ==
[2018-09-29 11:38] LABS: Anion Gap 14.1 mEq/L (5-15); Blood Urea Nitrogen 16 mg/dL (7-18); Calcium 9.5 mg/dL (8.5-10.1); Carbon Dioxide 26 mmol/L (21.0-32.0); Chloride 106 mmol/L (98-107); Creatinine,Serum 0.96 mg/dL (0.70-1.30); Estimated Glomerular Filt Rate 80 ml/min (>60); GFR (African American) 97 ML/MIN (>60); Glucose 121 mg/dL (74-106); Potassium 4.1 mmoL/L (3.5-5.1); Sodium 142 mmol/L (136-145)
[2018-09-29 11:39] LABS: Alanine Aminotransferase 30 U/L (12-78); Albumin Level 3.9 gm/dL (3.4-5.0); Albumin/Globulin Ratio 1.1 (1.1-1.8); Alkaline Phosphatase 77 U/L (46-116); Bilirubin,Total 0.4 mg/dL (0.2-1.0); Cholesterol 176 mg/dL (140-200); Globulin 3.7 gm/dl (1.3-3.2); HDL Cholesterol 35 mg/dL (27-67); LDL Cholesterol 107 mg/dL (0-130); Total Protein,Serum 7.6 gm/dL (6.4-8.2); Triglycerides 170 mg/dL (30-200); VLDL Cholesterol 34 mg/dL (0-40)
--- NOTE | 2018-09-29 11:43 | CT_ITS ---
CT chest w con HISTORY: Right axillary mass with tenderness ITS.REASON: MASS OF RT AXILLA ORDERING PHYSICIAN: Salvador Meyer MD PATIENT AGE: 58 years COMPARISON: 09/02/2017 TECHNIQUE: Axial images obtained following the administration of 75 mL of Optiray 350 . Sagittal, and coronal reformatted images are also generated and reviewed. All CT scans at the facility use one or more dose reduction, viz: automated exposure control, ma/kV adjustment per patient size (including targeted exams where dose is matched to indication, i.e. head), or iterative reconstruction technique. FINDINGS: The area of concern is marked with a BB. Deep to this region there is a lymph node with a prominent fatty hilum. No inflammatory changes are apparent. No suspicious adenopathy evident. This is not significant change compared to the previous exam. No mediastinal or hilar mass or adenopathy is evident. There is a 4 mm noncalcified nodule in the right lower lobe medially series 3 #41. This is nonspecific but not readily apparent on the previous exam. The remaining lungs are clear. No evidence of aortic aneurysm or dissection or central pulmonary embolus. No acute bony findings. Abdominal and metastatic liver placement. There are nonobstructing renal calculi on the left measuring up to 4 mm. IMPRESSION: 1. No acute finding. 2. No evidence of axillary mass abscess or other significant anomalies. There is a fatty replaced lymph node deep to the placed marker on the skin which is not significantly changed 3. New 4 mm noncalcified nodule in the right lower lobe medially. Recommend 6 month follow-up. 4. Left nephrolithiasis
[2018-09-29 11:48] LABS: Aspartate Amino Transferase 23 U/L (15-37); Prostate Specific Ag Screen 0.3 ng/mL (0.0-4.0)
== END ==
PROVIDERS: PCP Family Medicine; Visit Provider Family Medicine
DX: R22.31 Localized swelling, mass and lump, right upper limb (principal)
CPT/HCPCS: 36415; 71260; 80053; 80061; G0103; Q9967

== ENCOUNTER → 2018-12-01 09:58 | Outpatient (CLI) | payer BC, SELFPAY ==
--- NOTE | 2018-12-01 10:04 | XR_ITS ---
XR ankle LT min 3V HISTORY: Follow-up ORIF ITS.REASON: post op ORDERING PHYSICIAN: Janet Cavazos MD PATIENT AGE: 58 years Comparison: 11/23/2018 FINDINGS: Status post ORIF medial malleolus fracture. There are 2 screws present one of which may be entering superior to the fracture line. There is good alignment. Fracture line still visible. IMPRESSION: Good alignment status post ORIF medial malleolus fracture with fracture line still visible
== END ==
PROVIDERS: PCP Family Medicine; Visit Provider Orthopaedic Surgery
DX: S82.53XA Displaced fracture of medial malleolus of unspecified tibia, initial encounter for closed fracture (principal)
CPT/HCPCS: 73610

== ENCOUNTER → 2018-12-22 12:46 | Outpatient (CLI) | payer BC, SELFPAY ==
--- NOTE | 2018-12-22 12:50 | XR_ITS ---
XR ankle LT min 3V HISTORY: Follow-up ORIF ITS.REASON: post op DOS: 11/23 ORDERING PHYSICIAN: Janet Cavazos MD PATIENT AGE: 58 years Comparison: 12/01/2018 FINDINGS: A splint has been removed. [address] along the medial malleolus. There remains good alignment. Fracture line still visible at the base of the medial malleolus. IMPRESSION: Overall no change status post ORIF medial malleolus fracture with good alignment.
== END ==
PROVIDERS: PCP Family Medicine; Visit Provider Orthopaedic Surgery
DX: S82.53XA Displaced fracture of medial malleolus of unspecified tibia, initial encounter for closed fracture (principal)
CPT/HCPCS: 73610

== ENCOUNTER → 2018-12-29 10:48 | Outpatient (CLI) | payer BC, SELFPAY ==
--- NOTE | 2018-12-29 11:25 | XR_ITS ---
XR ankle LT min 3V HISTORY: ITS.REASON: left ankle pain ORDERING PHYSICIAN: Janet Cavazos MD PATIENT AGE: 58 years Comparison: None FINDINGS: The medial malleolus fracture with associated fixation screws are stable. There is no acute fracture.. The joint spaces and alignment are stable. Also stable are degenerative changes involving the calcaneus with calcific densities related to the Achilles tendon at the attachment to the calcaneus. IMPRESSION: Postoperative exam is stable. No acute process.
== END ==
PROVIDERS: PCP Family Medicine; Visit Provider Orthopaedic Surgery
DX: M25.572 Pain in left ankle and joints of left foot (principal)
CPT/HCPCS: 73610

== ENCOUNTER → 2019-01-17 12:44 | Outpatient (CLI) | payer BC, SELFPAY ==
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
== END ==
PROVIDERS: PCP Family Medicine; Visit Provider Orthopaedic Surgery
DX: S83.411D Sprain of medial collateral ligament of right knee, subsequent encounter (principal); S82.52XA Displaced fracture of medial malleolus of left tibia, initial encounter for closed fracture
CPT/HCPCS: 73721

== ENCOUNTER → 2019-01-21 13:14 | Outpatient (CLI) | payer BC, SELFPAY ==
--- NOTE | 2019-01-21 13:21 | XR_ITS ---
XR ankle LT min 3V HISTORY: Follow-up fracture ITS.REASON: ankle fx ORDERING PHYSICIAN: Janet Cavazos MD PATIENT AGE: 58 years Comparison: (: 12/29/2018 FINDINGS: The 2 threaded pins are again seen stabilizing the healed fracture of the medial malleolus. There is ossific spurring of the tip of the medial malleolus and lateral malleolus as well. The overall ankle mortise appears grossly normal except for possible mild narrowing medially. There are prominent spurs the calcaneus at insertion of Achilles tendon and plantar tendon. IMPRESSION: Stable ORIF medial malleolus fracture which appears to be healed, no acute fracture seen
== END ==
PROVIDERS: PCP Family Medicine; Visit Provider Orthopaedic Surgery
DX: S82.53XA Displaced fracture of medial malleolus of unspecified tibia, initial encounter for closed fracture (principal)
CPT/HCPCS: 73610

== ENCOUNTER → 2019-02-25 13:11 | Outpatient (CLI) | payer BC, SELFPAY ==
--- NOTE | 2019-02-25 13:15 | XR_ITS ---
PROCEDURE: XR ANKLE WT BEARING LT MIN 3V CLINICAL INDICATION: ankle pain Pain and stiffness COMPARISON: [id number] XR ankle LT 2V from 11/23/2018 from 01/21/2019 FINDINGS: Good alignment status post ORIF medial malleolar region. Two screws remain in place with hypertrophic change along the medial malleolar region. Ankle mortise appears intact. There is also some bony hypertrophy at the lateral malleolar tip. No acute fracture or dislocation. Enthesophytes present at the Achilles insertion and there is a calcaneal spur. Degenerative changes are present in the midfoot. IMPRESSION: No acute findings. Dictated by: Chele Stanley MD 02/25/2019 13:55 Signed by: <Electronically signed by Chele Stanley MD in [place]> 02/25/2019 13:55
== END ==
PROVIDERS: PCP Family Medicine; Visit Provider Orthopaedic Surgery
DX: M25.572 Pain in left ankle and joints of left foot (principal); M79.672 Pain in left foot
CPT/HCPCS: 73610

== ENCOUNTER → 2019-03-28 13:23 | Outpatient (CLI) | payer BC, SELFPAY ==
--- NOTE | 2019-03-28 13:26 | XR_ITS ---
PROCEDURE: XR ANKLE WT BEARING LT MIN 3V CLINICAL INDICATION: Lt ankle FX Follow-up fracture COMPARISON: ANKCMLT XR ankle LT min 3V from 11/18/2018 [id number] XR ankle LT 2V from 11/23/2018 from 01/21/2019 FINDINGS: Status post ORIF medial malleolar fracture with 2 screws present through the medial malleolus with good alignment. Hypertrophic changes are present at the tip of the medial malleolar region. The fracture line is less visible. Prominent hypertrophic changes are present at the IMPRESSION: Healing medial malleolar fracture status post ORIF with good alignment Dictated by: Chele Stanley MD 03/28/2019 13:54 Electronically signed by Chele Stanley MD in [place] 03/28/2019 13:54
== END ==
PROVIDERS: PCP Family Medicine; Visit Provider Orthopaedic Surgery
DX: S82.53XA Displaced fracture of medial malleolus of unspecified tibia, initial encounter for closed fracture (principal)
CPT/HCPCS: 73610

== ENCOUNTER 2019-03-31 17:00 | Outpatient (RCR) | payer BC, SELFPAY ==
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
== END 2019-03-31 17:05 | disposition home or self-care (01) ==
LOC: PT 17:00
PROVIDERS: Visit Provider Orthopaedic Surgery
DX: S82.53XA Displaced fracture of medial malleolus of unspecified tibia, initial encounter for closed fracture (principal)
CPT/HCPCS: 97010; 97110; 97161; 97163; 97164; 97597; 97760

== ENCOUNTER 2020-10-03 21:12 | Emergency (ER) | payer OTHER, SELFPAY ==
--- NOTE | 2020-10-03 21:09 | ECG_ITS ---
APPROVED REPORT Exam: Resting ECG HR:76 bpm ECG Measurements Heart Rate 76 AXES MI 162 P 83 QRSd 98 QRS 18 QT 366 T 57 QTc 411 Conclusion Normal sinus rhythm Normal ECG Electronically signed by : Kostas Anguiano, 10/04/2020 14:57:13
[2020-10-03 21:13] VITALS: BP 195/95; PULSE 99; RESP 18; TEMP 37.1; O2SAT 99; BMI 31.9
[2020-10-03 21:18] VITALS: BMI 31.9
--- NOTE | 2020-10-03 21:19 | XR_ITS ---
PROCEDURE: XR CHEST 2V CLINICAL HISTORY: chest pain COMPARISON: CR CXR CHEST(2 VIEWS-NOT PORTABLE) from 03/08/2016 CR CXR1 CHEST-PORTABLE from 02/13/[address] chest w con from 09/29/2018 FINDINGS: The cardiomediastinal silhouette and pulmonary vascularity are within normal limits. The lungs are clear without infiltrates, suspicious nodules, or pleural effusions. No acute bony abnormalities. IMPRESSION: No acute findings. Dictated by: Adriana Currie 10/04/2020 08:46 Adriana Currie in [place] 10/04/2020 08:46
--- NOTE | 2020-10-03 21:25 | CT_ITS ---
PROCEDURE: CT ANGIO CHEST CLINCIAL INDICATION: chest pain COMPARISON: CT ABDPELW/O CT ABD PELVIS W/O CONTRAST from 11/13/2015 US BREASTRT US breast RT complete from 07/31/[address] chest w con from 09/02/[address] chest w con from 09/29/[address] abdomen pelvis wo con from 10/28/2018 TECHNIQUE: IV Contrast: 70ML Isovue 370 Axial images obtained with sagittal and coronal reformats. All CT scans at the facility use one or more dose reduction, viz: automated exposure control, ma/kV adjustment per patient size (including targeted exams where dose is matched to indication, i.e. head), or iterative reconstruction technique. FINDINGS: Slightly limited study due to beam hardening artifact. HEART AND MEDIASTINAL STRUCTURES: Minor beam hardening artifact is noted over the bilateral main pulmonary arteries limiting evaluation. No evidence of focal filling defects noted within the pulmonary arteries to suggest embolism. The heart size is normal. No pericardial effusions. Calcified lymph nodes are noted in the mediastinum. No significant lymphadenopathy. LUNGS AND PLEURAL SPACES: Minor centrilobular emphysematous changes are noted. No lobar consolidation, pleural effusions or pneumothorax. The central tracheobronchial tree is patent. No suspicious lung nodules are noted. BONY STRUCTURES: Degenerative changes of the visualized thoracic spine. UPPER ABDOMEN: Multiple splenic calcifications are noted. There is focal prominence at the tail of the pancreas, predominantly visualized on the axial images. This demonstrates no significant interval change compared to the prior studies dating back to November 13, 2015, likely represents prominent tissue in the pancreatic tail. No other focal lesions in the visualized pancreas. Hepatic steatosis is noted. ADDITIONAL FINDINGS: Focal hypodense lesion is noted in the left lobe of thyroid gland measuring 6 millimeters, unchanged. IMPRESSION: No evidence of pulmonary embolism within the limitations of the study. Hepatic steatosis. Other chronic findings as described above. Dictated by: Adriana Currie 10/04/2020 08:36 Adriana Currie in [place] 10/04/2020 08:36
[2020-10-03 21:39] LABS: Adenovirus,PCR Not Detected (NotDetected); Bordetella Pertussis Not Detected (NotDetected); Chlamydophila Pneumoniae, PCR Not Detected (NotDetected); Coronavirus 19, PCR Not Detected (NotDetected); Coronavirus 229E Not Detected (NotDetected); Coronavirus NL63 Not Detected (NotDetected); Coronavirus OC43 Not Detected (NotDetected); Coronovirus HKU1,PCR Not Detected (NotDetected); Human Metapneumovirus Not Detected (NotDetected); Influenza A, PCR Not Detected (NotDetected); Influenza AH1, 2009 Not Detected (NotDetected); Influenza AH1, PCR Not Detected (NotDetected); Influenza AH3,PCR Not Detected (NotDetected); Influenza B, PCR Not Detected (NotDetected); Mycoplasma Pneumoniae, PCR Not Detected (NotDetected); Parainfluenza 1, PCR Not Detected (NotDetected); Parainfluenza 2, PCR Not Detected (NotDetected); Parainfluenza 3, PCR Not Detected (NotDetected); Parainfluenza 4, PCR Not Detected (NotDetected); Respiratory Syncytial Virus Not Detected (NotDetected); Rhinovirus/Enterovirus Not Detected (NotDetected)
[2020-10-03 21:41] LABS: Basophils # 0.1 K/mm3 (0-0.2); Basophils % 0.9 % (0.1-2.0); Eosinophils # 0.2 K/mm3 (0.0-0.4); Eosinophils % 2.2 % (0.1-12.0); Hematocrit 45.8 % (42.0-52.0); Hemoglobin 15.4 g/dL (14.1-18.0); Lymphocytes # 2.8 K/mm3 (0.7-4.5); Lymphocytes % 32.4 % (10-50); Mean Corpuscular HGB Conc 33.7 g/dL (31.8-35.4); Mean Corpuscular Hemoglobin 29.6 pg (27.0-31.2); Mean Platelet Volume 7.1 fl (7.4-10.4); Monocytes # 0.5 K/mm3 (0.1-1.0); Monocytes % 6.1 % (1.7-9.3); Neutrophils # 4.9 K/mm3 (1.8-7.8); Neutrophils % 58.3 % (37.0-80.0); Platelet Count 337 K/mm3 (142-424); Red Cell Distribution Width 13.3 % (11.5-17.5); White Blood Count 8.5 K/mm3 (4.8-10.8)
[2020-10-03 21:43] LABS: Alanine Aminotransferase 29 U/L (12-78); Alkaline Phosphatase 79 U/L (38-126); Aspartate Amino Transferase 37 U/L (17-59); Bilirubin,Direct 0.1 mg/dl (0.0-0.4); Bilirubin,Indirect 0.2 mg/dL (0.0-0.9); Bilirubin,Total 0.3 mg/dl (0.2-1.3); Bilirubin,Unconjugated 0.3 mg/dL (0.0-1.1); Total Protein,Serum 8.7 g/dl (6.3-8.2)
[2020-10-03 21:44] LABS: Anion Gap 16.1 mEq/L (5-15); Blood Urea Nitrogen 19 mg/dl (9-20); Calcium 9.9 mg/dl (8.4-10.2); Carbon Dioxide 26 mmol/L (22.0-30.0); Chloride 106 mmol/L (98-107); Creatinine Clearance Estimated 86 mL/min (50-200); Estimated Glomerular Filt Rate 61 ml/min (>60); GFR (African American) 74 ML/MIN (>60); Glucose 153 mg/dl (74-100); Potassium 4.1 mmoL/L (3.5-5.1); Sodium 144 mmol/L (136-145)
[2020-10-03 21:48] LABS: C-Reactive Protein 3.6 mg/L (0-4)
[2020-10-03 21:58] LABS: Troponin I < 0.01 ng/ml (0.00-0.034)
--- NOTE | 2020-10-03 21:58 | HMH.EDCP ---
ED Disposition Clinical Impression: Atypical chest pain Disposition: Home, Self-Care Condition on Discharge: Good Instructions: DI for Atypical Chest Pain Additional Instructions: recheck if needed and call pcp in am Referrals: Salvador Meyer MD [Primary Care Provider] - - Critical Care Critical Care Time: No Attestation: On 10/03/20, the high probability of a clinically significant, sudden or life threatening deterioration of the following system(s) required my full and direct attention, intervention and personal management. The time I documented below is in addition to time spent performing reported procedures but includes the following listed in this critical care notation. Medical Decision Making - Medical Records Medical records reviewed: Yes: I reviewed the patient's medical records. - Devendra Inquiry Pt receiving controlled substance: No Vital Signs: 10/03/20 21:13 10/03/20 22:09 Temperature 98.7 F Temperature Source Oral Pulse Rate 80 Pulse Rate [Right] 99 H Respiratory Rate 18 17 Blood Pressure 168/86 H Blood Pressure [Right Arm] 195/95 H Blood Pressure Mean 104 Blood Pressure Mean [Right Arm] 128 Blood Pressure Source [Right Arm] Automatic Cuff Blood Pressure Position [Right Arm] Supine 02 Sat by Pulse Oximetry 99 98 Oxygen Delivery Method Room Air - Lab Data Lab results reviewed: Yes: I reviewed the patient's lab results. Lab Results 10/03/20 21:10: WBC 8.5, RBC 5.20, Hgb 15.4, Hct 45.8, MCV 88.0, MCH 29.6, MCHC 33.7, RDW 13.3, Plt Count 337, MPV 7.1 L, Neut % (Auto) 58.3, Lymph % (Auto) 32.4, [place] % (Auto) 6.1, Eos % (Auto) 2.2, Baso % (Auto) 0.9, Neut # (Auto) 4.9, Lymph # (Auto) 2.8, [place] # (Auto) 0.5, Eos # (Auto) 0.2, Baso # (Auto) 0.1 10/03/20 21:10: Sodium 144, Potassium 4.1, Chloride 106, Carbon Dioxide 26, Anion Gap 16.1 H, BUN 19, Creatinine 1.20, Estimated Creat Clear 86, Estimated GFR 61, Est GFR ( Amer) 74, Glucose 153 H, Calcium 9.9, Troponin I < 0.01 03/31/21 21:10: ESR 23 H 10/03/20 21:10: Total Bilirubin 0.3, Direct Bilirubin 0.1, Conjugated Bilirubin 0.0, Indirect Bilirubin 0.2, Unconjugated Bilirubin 0.3, AST 37, ALT 29, Alkaline Phosphatase 79, C-Reactive Protein 3.6, Total Protein 8.7 H, Albumin 5.0, Procalcitonin 0.049 10/03/20 21:10: Amylase 63 10/03/20 21:10: Lipase 73 Result diagrams: 10/03/20 21:10 10/03/20 21:10 Orders (Tests/Meds): ED MEDICATIONS Generic Name Dose Route Start Last Admin Trade Name Freq PRN Reason Stop Dose Admin Sodium Chloride 1,000 mls @ 999 mls/hr 10/03/20 21:30 10/03/20 21:20 Sod Chlor 0.9% 1000ml Bag IV 10/03/20 22:30 999 mls/hr .Q1H1M MARY GRACE Administration Discontinued Medications Generic Name Dose Route Start Last Admin Trade Name Freq PRN Reason Stop Dose Admin Acetaminophen/Codeine Phosphate 1 dilan 10/03/20 22:44 Acetaminophen 300mg W/Codeine 30mg Take Home Pack (6) PO 10/03/20 22:45 ONCE ONE Aspirin 324 mg 10/03/20 21:19 10/03/20 21:20 Aspirin 81mg Chewable Tablet PO 10/03/20 21:20 324 mg ONCE ONE Administration Iopamidol 70 ml 10/03/20 22:03 10/03/20 22:04 Iopamidol-370 (76%);100ml Bottle IV 10/03/20 22:04 70 ml ONCE ONE Administration Ketorolac Tromethamine 30 mg 10/03/20 21:25 10/03/20 21:29 Ketorolac 30mg/Ml Vial IV 10/03/20 21:26 30 mg ONCE ONE Administration Methylprednisolone Sodium Succinate 125 mg 10/03/20 22:43 Methylprednisolone Sod Succ 125mg Vial IV 10/03/20 22:44 ONCE ONE Morphine Sulfate 4 mg 10/03/20 22:15 10/03/20 22:17 Morphine 4mg/Ml Syringe IV 10/03/20 22:16 4 mg ONCE ONE Administration Nitroglycerin 0.4 mg 10/03/20 21:19 10/03/20 21:12 Nitroglycerin 0.4mg Sl Tablet SL 10/03/20 21:20 0.4 mg ONCE ONE Administration Ondansetron HCl 4 mg 10/03/20 22:15 10/03/20 22:17 Ondansetron 4mg/2ml Vial IV 10/03/20 22:16 4 mg ONCE ONE Administration Sodium Chloride 40 ml 10/03/20
[2020-10-03 22:02] LABS: Procalcitonin 0.049 ng/mL (0.0-2.0)
[2020-10-03 22:09] VITALS: BP 168/86; PULSE 80; RESP 17; O2SAT 98
[2020-10-03 22:19] LABS: Erythrocyte Sedimentation Rate 23 mm/hr (0-20)
[2020-10-03 22:23] LABS: Amylase 63 U/L (30-110); Lipase 73 U/L (23-300)
[2020-10-03 22:30] VITALS: BP 133/76; PULSE 68; RESP 18; O2SAT 96
[2020-10-03 22:53] VITALS: BP 133/76; PULSE 64; RESP 16; TEMP 37.1; O2SAT 96
== END 2020-10-03 22:56 | disposition home or self-care (01) ==
PROVIDERS: Emergency Provider Emergency Medicine; PCP Family Medicine
DX: R07.89 Other chest pain (principal); I10 Essential (primary) hypertension; E78.5 Hyperlipidemia, unspecified; Z87.442 Personal history of urinary calculi; Z85.038 Personal history of other malignant neoplasm of large intestine
CPT/HCPCS: 71046; 71275; 80048; 80076; 82150; 83690; 84145; 84484; 85025; 85651; 86140; 87581; 87633; 87798; 93005; 96365; 96375; 99283; J2405; Q9967

== ENCOUNTER 2020-11-24 14:52 | Emergency (ER) | payer OTHER, SELFPAY ==
[2020-11-24 15:02] VITALS: BP 156/87; PULSE 92; RESP 19; TEMP 37; O2SAT 98; BMI 31.9
[2020-11-24 15:25] VITALS: BP 156/87; PULSE 92; RESP 19; TEMP 37; O2SAT 98
[2020-11-24 15:28] LABS: Apearance,Urine Clear (Clear); Bilirubin,Urine Negative (Negative); Blood, Urine Negative (Negative); Color,Urine Yellow (Yellow); Glucose,Urine (UA) Negative (Negative); Ketones,Urine Negative (Negative); PH,Urine 6.5 (5.0-8.5); Protein,Urine Negative (Negative); Urobilinogen,Urine 0.2 EU/dl (0.2)
--- NOTE | 2020-11-24 15:28 | HMH.EDUTC ---
[facility] Disposition Clinical Impression: Low back pain Qualifiers: Chronicity: acute Back pain laterality: unspecified Sciatica presence: without sciatica Qualified Code(s): M54.5 - Low back pain Disposition: Home, Self-Care Condition on Discharge: Good Additional Instructions: Continue to take your meloxicam for pain. Follow up with your primary care doctor as scheduled. Drink plenty of fluids. GO TO THE ER FOR ANY WORSENING SYMPTOMS OR CONCERNS Referrals: Salvador Meyer MD [Primary Care Provider] - Time of Disposition: 15:43 Medical Decision Making - Medical Records Medical records reviewed: No: I reviewed the patient's medical records. - Devendra Inquiry Pt receiving controlled substance: No Vital Signs: 11/24/20 15:02 11/24/20 15:25 Temperature 98.6 F 98.6 F Temperature Source Oral Pulse Rate 92 H Pulse Rate [Left] 92 H Respiratory Rate 19 19 Blood Pressure 156/87 H Blood Pressure [Right Arm] 156/87 H Blood Pressure Mean [Right Arm] 110 02 Sat by Pulse Oximetry 98 - Lab Data Lab Results 11/24/20 15:24: Urine Color Yellow, Urine Appearance Clear, Urine pH 6.5, Ur Specific [place] 1.020, Urine Protein Negative, Urine Glucose (UA) Negative, Urine Ketones Negative, Urine Blood Negative, Urine Nitrate Negative, Urine Bilirubin Negative, Urine Urobilinogen 0.2, Ur Leukocyte Esterase Negative Orders (Tests/Meds): ORDERS Category Date Time Status Urine Culture Stat Micro 11/24/20 15:08 Results [facility] HPI - General Stated complaint: back pain, frequent urination Time Seen by Provider: 11/24/20 15:39 Mode of Arrival: Ambulatory Source of Information: Patient Limitations: No Limitations Description of Symptoms (Recalled from Triage Doc. by RN): Pt states he has a UTI. Pt c/o lower back and pelvic pain HEENT Symptoms (Recalled from RN notes): No Resp Symptoms (Recalled from RN notes): No Skin Symptoms (Recalled from RN notes): No MS Symptoms (Recalled from RN notes): No Functional Status (Recalled from RN notes): wnl - History of Present Illness Provider Complaint: He states that for the past 3 days he has had low back pain and lower abdominal pain at times. He came in here today to have his urine checked for infection. He denies any fever, chills, etc. Onset (ago): minute(s) - Related Data Home Medications Medication Instructions Recorded Confirmed Amlodipine Besylate [Amlodipine 10 mg PO DAILY 02/01/18 10/03/20 10mg Tab] Buprenorphine [Butrans] 10 meq TRANSTRACHEAL WEEKLY 02/01/18 10/03/20 Meloxicam 15 mg PO DAILY 02/01/18 10/03/20 Pravastatin Sodium [Pravachol] 20 mg PO HS 02/01/18 10/03/20 Hydrocodone/Acetaminophen [[place] 1 tab PO QID PRN 04/21/19 10/03/20 7.5-325 Tablet] Allergies Allergy/AdvReac Type Severity Reaction Status Date / Time Penicillins [PENICILLINS] Allergy Unknown Verified 11/24/20 15:25 - Worker's Comp Is this a Worker's Comp case?: No H History - Hepatitis A Screen Drug use history?: No High risk sexual behaviors?: No History of sexually transmitted infection?: No Currently employed?: No Childcare worker?: No Do you have indoor plumbing?: Yes Do you have electricity?: Yes Attestation statement:: This patient has been screened for Hepatitis A risk factors. I have reviewed the patient's past medical history: Yes Medical History: Reports:: Cancer, Hyperlipidemia, Hypertension, Kidney Stones, Migraine Denies:: BPH, Diabetes Mellitus Type 1, Diabetes Mellitus Type 2, Internal Pacemaker, MRSA, Seizures Other Medical History: Reports: Arthritis, Hormone Therapy. Denies: Blood Transfusion Reaction Laterality Cases: Left: Arthroscopy Knee, Bilateral: Tonsillectomy Other Surgeries: Yes: Colon Resection, Other. No: Pacemaker Amputation: No Fractures: No Comment: He has had surgery, lipoma over right mastoid removal 2009, laminectomy in 2013, laparoscopic partial right hemicolectomy for colon cancer in 2015,
[2020-11-24 15:29] LABS: UTC Leukocyte Esterase,Urine Negative (Negative); UTC Nitrate,Urine Negative (Negative)
== END 2020-11-24 15:44 | disposition home or self-care (01) ==
PROVIDERS: Emergency Provider Nurse Practitioner Family; PCP Family Medicine
DX: M54.5 Low back pain (principal); R10.30 Lower abdominal pain, unspecified; E78.5 Hyperlipidemia, unspecified; I10 Essential (primary) hypertension; Z87.442 Personal history of urinary calculi; Z79.899 Other long term (current) drug therapy
CPT/HCPCS: 81003; 87086; 99202; G0463

== ENCOUNTER → 2020-12-15 10:48 | Outpatient (CLI) | payer OTHER, SELFPAY ==
[2020-12-15 13:31] LABS: Hemoglobin A1C 6.2 % (4.0-6.0)
[2020-12-15 13:44] LABS: Alanine Aminotransferase 20 U/L (12-78); Albumin Level 4.6 g/dl (3.5-5.0); Albumin/Globulin Ratio 1.6 (1.1-1.8); Alkaline Phosphatase 66 U/L (38-126); Amylase 36 U/L (30-110); Anion Gap 13.7 mEq/L (5-15); Aspartate Amino Transferase 22 U/L (17-59); Bilirubin,Total 0.5 mg/dl (0.2-1.3); Blood Urea Nitrogen 26 mg/dl (9-20); Carbon Dioxide 27 mmol/L (22.0-30.0); Chloride 105 mmol/L (98-107); Chol/HDL Ratio 4.3 (1-3.5); Cholesterol 180 mg/dl (140-200); Estimated Glomerular Filt Rate 68 ml/min (>60); GFR (African American) 82 ML/MIN (>60); Globulin 2.8 g/dL (1.3-3.2); Glucose 88 mg/dl (74-100); HDL Cholesterol 42 mg/dl (40-60); Lipase 47 U/L (23-300); Potassium 4.7 mmoL/L (3.5-5.1); Sodium 141 mmol/L (136-145); Total Protein,Serum 7.4 g/dl (6.3-8.2); Triglycerides 213 mg/dl (30-150); VLDL Cholesterol 43 mg/dL (0-40)
[2020-12-15 13:55] LABS: Direct LDL Cholesterol 98.77 mg/dL (100-129)
[2020-12-15 14:00] LABS: Free T4 (Free Thyroxine) 1.21 ng/dl (0.78-2.19)
[2020-12-15 14:14] LABS: Thyroid Stimulating Hormone 1.34 uIU/mL (0.465-4.68)
[2020-12-16 09:43] LABS: PSA, Free 0.12 ng/mL; Prostate Specific Ag 0.3 ng/mL (0.0-4.0)
== END ==
PROVIDERS: Visit Provider Family Medicine
DX: R07.2 Precordial pain (principal); K21.00 Gastro-esophageal reflux disease with esophagitis, without bleeding; E78.5 Hyperlipidemia, unspecified; I10 Essential (primary) hypertension; R73.9 Hyperglycemia, unspecified
CPT/HCPCS: 80053; 80061; 82150; 83036; 83690; 84153; 84154; 84439; 84443

== ENCOUNTER → 2020-12-20 09:11 | Outpatient (CLI) | payer OTHER, SELFPAY ==
--- NOTE | 2020-12-20 | CA_ITS ---
APPROVED REPORT Exam: Exercise Treadmill Technologist: Yuki Marcelo, Ht: 5 ft 8 in Wt: 205 lbs BSA: 2.07 m2 HR: 65 bpm BP: 157/86 mmHg Rhythm: NSR,ST-T ABNS IN LEAD III Medical History Medical History: HTN, Hyperlipidemia Medications: Pravastatin,,,,, MeLOXICAM,,,,, [place],,,,, AmOLODIPNE,,,,, BuTians,,,,, Allergies: PCN'S Cardiac Risk Factors: HTN, Hyperlipidemia Stress Test Details Test: Abdoulaye HR Resting HR: 74 bpm Max Heart Rate (APMHR): 158.696477 bpm Max HR Achieved: 144 bpm Target HR (85% APMHR): 134.669273 bpm % of APMHR: 91.14 Recovery HR: 119 bpm BP Resting BP: 139.0/79.0 mmHg Max BP: 242.0/86.0 mmHg Recovery BP: 242.0/86.0 mmHg ECG Resting ECG: NSR,ST-T ABNS IN LEAD III Clinical Exercise duration: 07:23 min Highest Stage Achieved: Exercise capacity: 10.1 METs Stress ECG Conclusion PATIENT EXERCISED 7:23 ON ABDOULAYE PROTOCOL WITH MAX HR 144 BPM WHICH IS 91% OF PM FOR AGE. MAX BP 242/86. METS = 10.1. TEST STOPPED DUE TO SOA AND FATIGUE. NO CP. NO ARRHYTHMIAS/ECTOPY. EXAGGERATION OF BASELINE ST-T ABN IN LEAD III. OTHERWISE NORMAL ST RESPONSE TO EXERCISE. PROBABLY NORMAL GXT. HTN RESPONSE TO EXERCISE(DID NOT TAKE AMLODIPINE THIS MORNING). GXT ONLY(NO IMAGING) Test Summary REST . . . . . . . Sitting REST . . . . . . . Standing REST 11:54 0.0 0.0 74 . 139/ 79 . . Stage 1 01:00 10.0 1.7 94 . . . . Stage 1 02:00 10.0 1.7 100 . . . . Stage 1 03:00 10.0 1.7 101 . 206/ 90 . . Stage 2 01:00 12.0 2.5 113 . . . . Stage 2 02:00 12.0 2.5 118 . . . . Stage 2 03:00 12.0 2.5 121 . 230/ 88 . . Stage 3 01:00 14.0 3.4 138 . . . . Stage 3 01:23 14.0 3.4 143 . . . Stop exercise at 07:23 RECOVERY 01:00 0.0 0.0 119 . 242/ 86 . . RECOVERY 02:00 0.0 0.0 94 . 242/ 86 . . RECOVERY 03:00 0.0 0.0 88 . 203/ 81 . . RECOVERY 04:00 0.0 0.0 91 . 203/ 81 . . RECOVERY 05:00 0.0 0.0 87 . 161/ 86 . . RECOVERY 05:28 0.0 0.0 89 . 161/ 86 . . Electronically signed by : Kostas Anguiano, 12/20/2020 17:31:41
--- NOTE | 2020-12-20 09:59 | US_ITS ---
PROCEDURE: US ABDOMEN LIMITED CLINICAL INDICATION: PRECORDIAL PAIN,ABD PAIN COMPARISON: No exams were available for comparison FINDINGS: Head of the pancreas and visualized abdominal aorta and inferior vena cava are normal. Extensive diffuse fatty infiltration of the liver noted. No focal liver lesion. Small amount of sludge in the gallbladder. No discrete gallstones. No pericholecystic fluid. Borderline thickened gallbladder wall of 3 mm this could represent changes of chronic cholecystitis. Right kidney is normal. No abdominal ascites. No dilatation of the intra or extrahepatic bile ducts. Common duct measures 3 mm. IMPRESSION: Small to moderate amount of sludge in the gallbladder with borderline thickened gallbladder wall. No discrete gallstones. Findings may represent changes of chronic cholecystitis. No dilatation of the intra or extrahepatic bile ducts. Extensive diffuse fatty infiltration of the liver. Dictated by: Fan Nunez MD 12/20/2020 13:25 Fan Nunez MD in [place] 12/20/2020 13:25
== END ==
PROVIDERS: PCP Family Medicine; Visit Provider Family Medicine
DX: R07.2 Precordial pain (principal); R10.11 Right upper quadrant pain
CPT/HCPCS: 76705; 93017

== ENCOUNTER → 2021-01-04 10:13 | Outpatient (CLI) | payer OTHER, SELFPAY ==
--- NOTE | 2021-01-04 10:17 | NM_ITS ---
PROCEDURE: NM HEPATOBILIARY W PHARM CLINICAL INDICATION: RUQ ABD PAIN, ABN FINDING ON DX IMAGING OF GALLBLADDER COMPARISON: US US ABDOMEN LIMITED from 12/20/2020 TECHNIQUE: DOSE: 8.02 mCi technetium Choletec 1.8 mcg CCK FINDINGS: Homogeneous activity is present within the hepatic parenchyma. Activity is present in the gallbladder by 5 minutes. Activity is present in the small bowel by 60 minutes. The gallbladder ejection fraction is calculated to be 94 percent. CCK-The patient did not report pain or other symptoms during CCK infusion. IMPRESSION: No evidence of common or cystic duct obstruction. There is normal gallbladder ejection fraction. Dictated by: Chele Stanley MD 01/04/2021 13:45 Chele Stanley MD in [place] 01/04/2021 13:45
== END ==
PROVIDERS: PCP Family Medicine; Visit Provider Family Medicine
DX: R10.11 Right upper quadrant pain (principal); R93.2 Abnormal findings on diagnostic imaging of liver and biliary tract
CPT/HCPCS: 78227; A9537; J2805

== ENCOUNTER → 2021-01-17 13:57 | Outpatient (CLI) | payer OTHER, SELFPAY ==
--- NOTE | 2021-01-17 14:00 | XR_ITS ---
PROCEDURE: XR FOOT RT MIN 3V CLINICAL INDICATION: RT FOOT PAIN Injury with pain COMPARISON: CR FTR3 FOOT-RT-3 VIEWS from 08/24/2014 CR FTL3 FOOT-LT-3 VIEWS from 08/24/2014 FINDINGS: There are osteoarthritic changes at the 1st MTP joint. There is prominent spurring along the proximal and plantar surface of the proximal phalanx of the 1st digit. There is an oblique fracture involving the base of the 5th metatarsal with extension into the articular surface of the base of the 5th metatarsal. There is a prominent calcaneal spur and prominent enthesophyte at the Achilles insertion. Other findings:None. IMPRESSION: Nondisplaced fracture involves the base of the 5th metatarsal. Other chronic changes as described above. Dictated by: Chele Stanley MD 01/17/2021 15:29 Chele Stanley MD in [place] 01/17/2021 15:29
--- NOTE | 2021-01-17 14:00 | XR_ITS ---
PROCEDURE: XR ANKLE RT MIN 3V CLINICAL INDICATION: RT FOOT PAIN COMPARISON: CR ANKCMLT XR ankle LT min 3V from 11/18/2018 CR [id number] XR ankle LT 2V from 11/23/2018 CR XR ANKLE WT BEARING LT MIN 3V from 02/25/2019 CR XR ANKLE WT BEARING LT MIN 3V from 03/28/2019 FINDINGS: Nondisplaced oblique fracture involves the base of the 5th metatarsal. Prominent calcaneal spur and prominent Achilles enthesophytes are present. Other findings:None. IMPRESSION: Nondisplaced fracture base of 5th metatarsal Dictated by: Chele Stanley MD 01/17/2021 15:30 Chele Stanley MD in [place] 01/17/2021 15:30
== END ==
PROVIDERS: PCP Family Medicine; Visit Provider Family Medicine
DX: M25.571 Pain in right ankle and joints of right foot (principal); M79.671 Pain in right foot
CPT/HCPCS: 73610; 73630

== ENCOUNTER 2021-01-18 14:32 | Outpatient (RCR) | payer OTHER, SELFPAY | END 2021-01-18 15:21 | disposition home or self-care (01) | LOC: PT 14:32 | PROVIDERS: Visit Provider Family Medicine | DX: S92.354A Nondisplaced fracture of fifth metatarsal bone, right foot, initial encounter for closed fracture (principal) ==

== ENCOUNTER → 2021-03-01 08:56 | Outpatient (CLI) | payer OTHER, SELFPAY ==
--- NOTE | 2021-03-01 08:59 | XR_ITS ---
PROCEDURE: XR FOOT WT BEARING RT 3V CLINICAL INDICATION: RT rth MT FX Follow-up fracture COMPARISON: CR FTL3 FOOT-LT-3 VIEWS from 08/24/2014 CR FTR3 FOOT-RT-3 VIEWS from 08/24/2014 CR XR FOOT RT MIN 3V from 01/17/2021 FINDINGS: There is a nondisplaced comminuted fracture through the base of the 5th metatarsal. The fracture line remains. There is good alignment with no significant displacement. The joint spaces are well-preserved. No significant degenerative/arthritic changes. No erosive changes evident. Other findings:None. IMPRESSION: No change nondisplaced comminuted fracture at the base of the 5th metatarsal with good alignment. Dictated by: Chele Stanley MD 03/01/2021 10:59 Chele Stanley MD in [place] 03/01/2021 10:59
== END ==
PROVIDERS: PCP Family Medicine; Visit Provider Orthopaedic Surgery
DX: S82.51XA Displaced fracture of medial malleolus of right tibia, initial encounter for closed fracture (principal)
CPT/HCPCS: 73630

== ENCOUNTER → 2021-03-22 10:39 | Outpatient (CLI) | payer OTHER, SELFPAY | PROVIDERS: PCP Family Medicine; Visit Provider Nurse Practitioner | DX: Z20.822 Contact with and (suspected) exposure to COVID-19 (principal) | CPT/HCPCS: C9803; U0003; U0005 ==

== ENCOUNTER → 2021-07-29 13:36 | Outpatient (CLI) | payer OTHER, SELFPAY | PROVIDERS: Visit Provider Internal Medicine | DX: Z01.812 Encounter for preprocedural laboratory examination (principal); Z11.52 Encounter for screening for COVID-19; Z12.11 Encounter for screening for malignant neoplasm of colon | CPT/HCPCS: C9803; U0003; U0005 ==

== ENCOUNTER → 2021-08-26 10:47 | Outpatient (CLI) | payer OTHER, SELFPAY ==
[2021-08-26 12:05] LABS: Alanine Aminotransferase 26 U/L (12-78); Albumin Level 4.7 g/dl (3.5-5.0); Albumin/Globulin Ratio 1.6 (1.1-1.8); Alkaline Phosphatase 62 U/L (38-126); Anion Gap 12.6 mEq/L (5-15); Aspartate Amino Transferase 28 U/L (17-59); Bilirubin,Total 0.5 mg/dl (0.2-1.3); Blood Urea Nitrogen 16 mg/dl (9-20); Calcium 9.7 mg/dl (8.4-10.2); Carbon Dioxide 28 mmol/L (22.0-30.0); Chloride 103 mmol/L (98-107); Chol/HDL Ratio 6.1 (1-3.5); Cholesterol 214 mg/dl (140-200); Estimated Glomerular Filt Rate 85 ml/min (>60); GFR (African American) 103 ML/MIN (>60); Globulin 2.9 g/dL (1.3-3.2); Glucose 122 mg/dl (74-100); HDL Cholesterol 35 mg/dl (40-60); Potassium 4.6 mmoL/L (3.5-5.1); Sodium 139 mmol/L (136-145); Total Protein,Serum 7.6 g/dl (6.3-8.2); Triglycerides 314 mg/dl (30-150); VLDL Cholesterol 63 mg/dL (0-40)
[2021-08-26 12:16] LABS: Direct LDL Cholesterol 117.57 mg/dL (100-129)
[2021-08-26 12:34] LABS: Prostate Specific Ag Screen 0.3 ng/ml (0.0-4.0)
== END ==
PROVIDERS: PCP Family Medicine; Visit Provider Internal Medicine
DX: Z01.812 Encounter for preprocedural laboratory examination (principal); Z11.52 Encounter for screening for COVID-19; Z12.11 Encounter for screening for malignant neoplasm of colon; I10 Essential (primary) hypertension; E78.5 Hyperlipidemia, unspecified; R73.9 Hyperglycemia, unspecified
CPT/HCPCS: 36415; 80053; 80061; 83036; G0103; C9803; U0003; U0005

== ENCOUNTER 2021-08-28 09:28 | Day surgery (SDC) | payer OTHER, SELFPAY ==
[2021-07-29 10:42] VITALS: BMI 31.1
[2021-08-21 14:35] VITALS: BMI 31.1
[2021-08-28 09:46] VITALS: BP 149/87; PULSE 94; RESP 18; TEMP 36.6; O2SAT 96
[2021-08-28 10:39] VITALS: O2SAT 97
[2021-08-28 11:01] VITALS: BP 100/58; PULSE 78; RESP 18; TEMP 36.1; O2SAT 93
[2021-08-28 11:11] VITALS: BP 92/55; PULSE 70; RESP 18; O2SAT 94
[2021-08-28 11:21] VITALS: BP 120/57; PULSE 65; RESP 18; O2SAT 97
[2021-08-28 11:33] VITALS: BP 157/90; PULSE 65; RESP 18; O2SAT 97
--- NOTE | 2021-08-29 08:11 | P.PN_ITS ---
[facility] Anesthesia Checklist - Patient Identification Patient Identification: Arm Band, Verbal (Name & ) - Structural Data Admitted From: Home Planned Operative Procedure/s: Colonoscopy Consent for Planned Operative Procedure(s) Verified: Yes Verified Documents: Surgical Consent - NPO Status Verified Time NPO: 00:00 - Additional verifications Anesthesia Reactions: No Hx Blood Transfusions: No Blood Transfusion Reaction: No - Airway Assessment C-Spine Mobility Assessed: Yes TMJ Mobility Assessed: Yes - Neurological Assessment Level of Consciousness: Awake, Alert, Appropriate - Anesthesia Plan Anesthesia Risk discussed: Yes ASA Class: III Anesthesia Type: MAC [facility] History I have reviewed the patient's past medical history: Yes Medical History: Reports:: Cancer (colon), Hyperlipidemia, Hypertension, Kidney Stones, Migraine Denies:: BPH, Diabetes Mellitus Type 1, Diabetes Mellitus Type 2, Internal Pacemaker, MRSA, Seizures *Have you ever received a pneumonia vaccine?: Yes *Have you received a flu vaccine this season?: No Other Medical History: Reports: Arthritis, Hormone Therapy. Denies: Blood Transfusion Reaction Anesthesia experience/problems:: none Laterality Cases: Left: Arthroscopy Knee, Other, Bilateral: Tonsillectomy Other Surgeries: Yes: Colon Resection, Other. No: Pacemaker Amputation: No Fractures: Yes - *Social History Last grade of school completed: Advanced degree Smoking Status: Never smoker Alcohol Intake: never Substance Use Type: other *Occupational Status:: employed Housing: house Household Members: spouse *Travel in the last 8 weeks: None Family Hx:: Cancer, Diabetes, Hypertension
--- NOTE | 2021-09-11 10:39 | HMH.SCOPE ---
- Procedure: Date: 08/28/21 Patient Date of :: 1960 Procedure Performed:: Colonoscopy Indications:: The patient is a 61 year old with history of colon cancer in 2016. He underwent partial colectomy. His last colonoscopy is reported to be 3 years ago with no polyps found. Performing Provider:: Sharath Amezquita MD Referring Provider:: Andreas Meyer MD Sedation:: See RN notes Procedure:: After placing the patient in the left lateral decubitus position, the colonoscopy was gently inserted into the rectum and under direct visualization advanced to the cecum which was identified by transillumination in the right lower quadrant, identification of the ileocecal valve, appendiceal orifice, and cecal strap. Color, texture, mucosa, and anatomy of the colon were carefully examined with the scope. Findings:: Anal canal: normal Rectum: Small internal hemorrhoids Sigmoid colon: normal without polyps or inflammatory changes Descending colon: normal without polyps or inflammatory changes Splenic flexure: normal Transverse colon: normal without polyps or inflammatory changes Hepatic flexure: Surgical changes. There is somewhat irregular appearing mucosa along the anastomosis. Biopsies were obtained with cold forceps Ascending colon: Resected Cecum: Resected Terminal ileum: not visualized Recommendations:: Await pathology results Repeat colonoscopy in 5 years if pathology results show no concerning features Complications:: None Estimated blood obtained (mL): 0
== END 2021-08-28 11:36 | disposition home or self-care (01) ==
LOC: OUTP 09:29
PROVIDERS: PCP Family Medicine; Visit Provider Internal Medicine
PROC: 0DJD8ZZ Inspection of Lower Intestinal Tract, Via Natural or Artificial Opening Endoscopic (ICD-10-PCS; CPT 45378; principal; 2021-08-28 10:30)
DX: Z12.11 Encounter for screening for malignant neoplasm of colon (principal); K64.0 First degree hemorrhoids; K63.9 Disease of intestine, unspecified; Z85.038 Personal history of other malignant neoplasm of large intestine; E78.5 Hyperlipidemia, unspecified; I10 Essential (primary) hypertension; G43.909 Migraine, unspecified, not intractable, without status migrainosus; N20.0 Calculus of kidney; M19.90 Unspecified osteoarthritis, unspecified site; Z79.890 Hormone replacement therapy
CPT/HCPCS: 45380

== ENCOUNTER → 2022-02-04 10:19 | Outpatient (CLI) | payer OTHER, SELFPAY ==
--- NOTE | 2022-02-04 10:41 | XR_ITS ---
FINAL REPORT CLINICAL HISTORY: low back pain, hx laminectomy, N/T in extremities FINDINGS: LUMBAR SPINE 5 views of the lumbar spine were obtained. There are postoperative changes from L5 laminectomy. There is no evidence of fracture or dislocation. The vertebral alignment is normal. There is mild degenerative change. There are mild vascular calcifications. IMPRESSION: Postoperative and degenerative change with no acute bony abnormality. Reviewed, Interpreted and Dictated by Jose J Ureña III, MD Transcribed by Elham Yeung Authenticated and [facility]
--- NOTE | 2022-02-04 10:41 | XR_ITS ---
FINAL REPORT CLINICAL HISTORY: N/T in extremities, back pain FINDINGS: THORACIC SPINE Three views were obtained. There is no acute fracture. There is no malalignment. There is mild degenerative change with osteophytes. There is no soft tissue abnormality. IMPRESSION: Mild degenerative change with no acute bony abnormality. Reviewed, Interpreted and Dictated by Jose J Ureña III, MD Transcribed by Elham Yeung Authenticated and [facility]
--- NOTE | 2022-02-04 10:41 | XR_ITS ---
FINAL REPORT CLINICAL HISTORY: neck pain, herniated disc, N/T in extremities FINDINGS: CERVICAL SPINE Seven views including flexion and extension were obtained. There is no acute fracture. There is no malalignment. There is no abnormal movement with flexion or extension. There are mild and moderate degenerative changes which are worse at C5-6 and C6-7. There are multilevel osteophytes. There is multilevel neural foraminal narrowing which is worse on the right at C5-6 and on the left at C5-6 and C6-7. There is no soft tissue abnormality. IMPRESSION: Mild and moderate degenerative change with areas of neural foraminal narrowing as described. No abnormal movement with flexion or extension. Reviewed, Interpreted and Dictated by Jose J Ureña III, MD Transcribed by Elham Yeung Authenticated and . [facility]
[2022-02-04 11:34] LABS: Erythrocyte Sedimentation Rate 16 mm/hr (0-20)
[2022-02-04 11:40] LABS: Creatine Kinase 94 U/L (55-170)
[2022-02-04 11:46] LABS: C-Reactive Protein 1.8 mg/L (0-4)
[2022-02-05 14:16] LABS: Aldolase 3.8 U/L (3.3-10.3)
== END ==
PROVIDERS: PCP Family Medicine; Visit Provider Nurse Practitioner Family
DX: M54.2 Cervicalgia (principal); M50.20 Other cervical disc displacement, unspecified cervical region; M79.651 Pain in right thigh; M79.652 Pain in left thigh; R20.0 Anesthesia of skin; R20.2 Paresthesia of skin; Z85.038 Personal history of other malignant neoplasm of large intestine; Z98.890 Other specified postprocedural states; M54.50 Low back pain, unspecified
CPT/HCPCS: 36415; 72052; 72072; 72110; 82085; 82550; 85651; 86140

== ENCOUNTER 2022-02-24 13:52 | Inpatient (IN) | payer OTHER, SELFPAY ==
[2022-02-24] VITALS (12 sets, daily range): BP systolic 127–160; BP diastolic 81–94; PULSE 60–88; RESP 14–19; TEMP 36.7–37.2; O2SAT 95–98; BMI 31.1; BMI 31.0
--- NOTE | 2022-02-24 13:50 | ECG_ITS ---
APPROVED REPORT Exam: Resting ECG HR:75 bpm ECG Measurements Heart Rate 75 AXES OK 167 P 54 QRSd 95 QRS 38 QT 353 T 50 QTc 383 Conclusion SINUS RHYTHM INDETERMINATE AXIS NORMAL ECG UNCONFIRMED REPORT Electronically signed by : Kostas Anguiano MD 02/25/2022 21:26:35
--- NOTE | 2022-02-24 14:05 | XR_ITS ---
FINAL REPORT TECHNIQUE: Chest PA & Lateral CLINICAL HISTORY: chest pain COMPARISON: October 03, 2020 FINDINGS: 2 views of the chest were performed. The heart size is normal. The mediastinum is within normal limits. There is no acute cardiopulmonary process. There are no pleural effusions. There is no pneumothorax. The bony thorax appears intact. IMPRESSION: No acute cardiopulmonary process. Reviewed, Interpreted and Dictated by Jaxon Rob MD Transcribed by Elham Yeung Authenticated and [facility]
[2022-02-24 14:36] LABS: Basophils # 0.1 K/mm3 (0-0.2); Basophils % 1.3 % (0.1-2.0); Eosinophils % 0.5 % (0.1-12.0); Hematocrit 46.2 % (42.0-52.0); Hemoglobin 14.8 g/dL (14.1-18.0); Lymphocytes # 1.5 K/mm3 (0.7-4.5); Lymphocytes % 20.2 % (10-50); Mean Corpuscular HGB Conc 32.1 g/dL (31.8-35.4); Mean Corpuscular Hemoglobin 30.4 pg (27.0-31.2); Mean Corpuscular Volume 94.8 fl (80-94); Mean Platelet Volume 7.7 fl (7.4-10.4); Monocytes # 0.5 K/mm3 (0.1-1.0); Monocytes % 6.7 % (1.7-9.3); Neutrophils # 5.3 K/mm3 (1.8-7.8); Neutrophils % 71.3 % (37.0-80.0); Platelet Count 335 K/mm3 (142-424); Red Blood Count 4.87 M/mm3 (4.60-6.20); Red Cell Distribution Width 13.3 % (11.5-17.5); White Blood Count 7.4 K/mm3 (4.8-10.8)
--- NOTE | 2022-02-24 14:40 | PC.NURSE ---
pt moved to room 2
[2022-02-24 14:45] LABS: Anion Gap 10.4 mEq/L (5-15); Blood Urea Nitrogen 13 mg/dl (9-20); Calcium 9.2 mg/dl (8.4-10.2); Carbon Dioxide 27 mmol/L (22.0-30.0); Chloride 105 mmol/L (98-107); Creatinine Clearance Estimated 99 mL/min (50-200); Estimated Glomerular Filt Rate 75 ml/min (>60); GFR (African American) 91 ML/MIN (>60); Glucose 104 mg/dl (74-100); Potassium 4.4 mmoL/L (3.5-5.1); Sodium 138 mmol/L (136-145)
--- NOTE | 2022-02-24 15:13 | PC.NURSE ---
LILIA AKHTAR at for patient eval
[2022-02-24 15:20] LABS: Troponin I < 0.01 ng/ml (0.00-0.034)
--- NOTE | 2022-02-24 15:22 | HMH.EDCP ---
ED Disposition Clinical Impression: Chest pain Disposition: Admitted as Observation Condition on Discharge: Good - Critical Care Critical Care Time: No Attestation: On 02/24/22, the high probability of a clinically significant, sudden or life threatening deterioration of the following system(s) required my full and direct attention, intervention and personal management. The time I documented below is in addition to time spent performing reported procedures but includes the following listed in this critical care notation. Medical Decision Making - Devendra Inquiry Pt receiving controlled substance: No Vital Signs: 02/24/22 13:52 02/24/22 14:28 02/24/22 14:45 Temperature 99.0 F Temperature Source Oral Pulse Rate 72 70 Pulse Rate [Left Radial] 87 Respiratory Rate 18 17 17 Blood Pressure 147/86 H 138/91 H Blood Pressure [Right Arm] 147/86 H Blood Pressure Mean 98 Blood Pressure Mean [Right Arm] 106 Blood Pressure Source Automatic Cuff Blood Pressure Source [Right Arm] Automatic Cuff Blood Pressure Position Supine Blood Pressure Position [Right Arm] Sitting 02 Sat by Pulse Oximetry 97 97 95 Oxygen Delivery Method Room Air Room Air 02/24/22 15:30 02/24/22 16:01 02/24/22 16:31 Temperature Temperature Source Pulse Rate 73 79 69 Pulse Rate [Left Radial] Respiratory Rate 19 16 16 Blood Pressure 138/85 141/85 H 139/94 H Blood Pressure [Right Arm] Blood Pressure Mean 100 102 101 Blood Pressure Mean [Right Arm] Blood Pressure Source Blood Pressure Source [Right Arm] Blood Pressure Position Blood Pressure Position [Right Arm] 02 Sat by Pulse Oximetry 95 95 96 Oxygen Delivery Method 02/24/22 17:01 02/24/22 17:43 02/24/22 18:02 Temperature Temperature Source Pulse Rate 73 66 71 Pulse Rate [Left Radial] Respiratory Rate 14 18 16 Blood Pressure 127/85 142/81 H 155/93 H Blood Pressure [Right Arm] Blood Pressure Mean 108 107 111 Blood Pressure Mean [Right Arm] Blood Pressure Source Blood Pressure Source [Right Arm] Blood Pressure Position Blood Pressure Position [Right Arm] 02 Sat by Pulse Oximetry 98 98 98 Oxygen Delivery Method Room Air 02/24/22 19:57 Temperature 98.5 F Temperature Source Pulse Rate 88 Pulse Rate [Left Radial] Respiratory Rate 18 Blood Pressure 142/87 H Blood Pressure [Right Arm] Blood Pressure Mean Blood Pressure Mean [Right Arm] Blood Pressure Source Blood Pressure Source [Right Arm] Blood Pressure Position Blood Pressure Position [Right Arm] 02 Sat by Pulse Oximetry Oxygen Delivery Method Room Air - Lab Data Lab Results 02/24/22 13:54: WBC 7.4, RBC 4.87, Hgb 14.8, Hct 46.2, MCV 94.8 H, MCH 30.4, MCHC 32.1, RDW 13.3, Plt Count 335, MPV 7.7, Neut % (Auto) 71.3, Lymph % (Auto) 20.2, [place] % (Auto) 6.7, Eos % (Auto) 0.5, Baso % (Auto) 1.3, Neut # (Auto) 5.3, Lymph # (Auto) 1.5, [place] # (Auto) 0.5, Eos # (Auto) 0.0, Baso # (Auto) 0.1 02/24/22 13:54: Sodium 138, Potassium 4.4, Chloride 105, Carbon Dioxide 27, Anion Gap 10.4, BUN 13, Creatinine 1.00, Estimated Creat Clear 99, Estimated GFR 75, Est GFR ( Amer) 91, Glucose 104 H, Calcium 9.2, Troponin I < 0.01 02/24/22 17:39: SARS-CoV-2 (PCR) Not detected, Influenza A Untype (PCR) Not detected, Influenza Type B (PCR) Not detected Result diagrams: 02/24/22 13:54 02/24/22 13:54 Orders (Tests/Meds): ED MEDICATIONS Discontinued Medications Generic Name Dose Route Start Last Admin Trade Name Freq PRN Reason Stop Dose Admin Morphine Sulfate 2 mg 02/24/22 19:47 02/24/22 19:52 Morphine 2mg/Ml Syringe IV 02/24/22 19:48 2 mg ONCE ONE Administration ORDERS Category Date Time Status Troponin I Q3H Lab 02/24/22 20:15 Ordered Chest Pain HPI - General Chief Complaint: Chest Pain Stated Complaint: chest pain Time Seen by Provider: 02/24/22 15:22 Mode of Arrival: Ambulatory Limitations: No Limitations Otf
--- NOTE | 2022-02-24 15:26 | PC.NURSE ---
paged for ER doctor
--- NOTE | 2022-02-24 15:29 | PC.NURSE ---
speaking with Dr. Pradhan
--- NOTE | 2022-02-24 17:00 | PC.NURSE ---
Dr.Norfleet calvert
--- NOTE | 2022-02-24 17:03 | PC.NURSE ---
Dr. Alston is actually occupational therapy professor, and will be being paged by dado operator instead of Dr. Meyer
--- NOTE | 2022-02-24 17:28 | PC.NURSE ---
Patient ambulating to bathroom at this time.
--- NOTE | 2022-02-24 17:36 | PC.NURSE ---
re-paged Dr. Alston
--- NOTE | 2022-02-24 17:46 | PC.NURSE ---
ER spoke with dr. powers, for dr. johnson- agreeable for admission
--- NOTE | 2022-02-24 17:48 | PC.NURSE ---
notified hous vine fruit farming supervisor of admission
[2022-02-24 18:02] LABS: Coronavirus 19, PCR Not Detected (NotDetected); Influenza A, PCR Not Detected (NotDetected); Influenza B, PCR Not Detected (NotDetected)
--- NOTE | 2022-02-24 18:02 | PC.WOUNDNOTE ---
report called to Yeni MARTINEZ
--- NOTE | 2022-02-24 18:55 | PC.NURSE ---
talked to lab and pt covid test in on to run next after current swab being run, approx 35 minutes before results are back.
--- NOTE | 2022-02-24 18:57 | PC.NURSE ---
updated pt and family at the wait for admission upstairs
[2022-02-24 19:11] LABS: Troponin I < 0.01 ng/ml (0.00-0.034)
--- NOTE | 2022-02-24 19:36 | PC.NURSE ---
Report given to Young Lopez RN. Pt still in ED. Pending covid swab.
--- NOTE | 2022-02-24 19:55 | PC.NURSE ---
Pt stating, my pain is coming back. I am getting a little emotional and it makes the pain come back. . MD notified and given medication per SEP.
--- NOTE | 2022-02-24 19:56 | PC.NURSE ---
PT ARRIVED VIA WHEEL CHAIR TO THE FLOOR AT THIS TIME
[2022-02-24 22:06] LABS: Troponin I < 0.01 ng/ml (0.00-0.034)
[2022-02-25] VITALS: BP 129/84; PULSE 59; PULSE 60; RESP 16; TEMP 36.6; O2SAT 97
[2022-02-25 04:00] VITALS: BP 114/74; PULSE 58; PULSE 62; RESP 17; TEMP 37.2; O2SAT 98
[2022-02-25 05:00] VITALS: BMI 30.8
--- NOTE | 2022-02-25 05:20 | PC.NURSE ---
Patient has been a&o x4. Patient states chest pain feels much better now. Patient has rested throughout night. Patient has been NSR on tele. No complaints voiced at this time.
--- NOTE | 2022-02-25 07:26 | P.CONPHA_ITS ---
[facility] Pharmacy VTE Monitoring - Patient Demographics Admission date: 02/24/22 Report Date: 02/25/22 Time: 07:26 Allergies/Adverse Reactions: Patient Allergies Penicillins [PENICILLINS] Allergy (Unknown, Verified 02/03/22 15:14) Height: 1.73 m Weight: 92.164 kg Patient Problems: Current Active Problems Chest pain (Acute) - VTE Risk Labs: VTE Related Lab Results Hgb 14.8 g/dL (14.1-18.0) 02/24/22 13:54 Hct 46.2 % (42.0-52.0) 02/24/22 13:54 Plt Count 335 K/mm3 (142-424) 02/24/22 13:54 BUN 13 mg/dl (9-20) 02/24/22 13:54 Creatinine 1.00 mg/dl (0.66-1.25) 02/24/22 13:54 Estimated Creat Clear 99 mL/min (50-200) 02/24/22 13:54 Was VTE Risk Assessment Performed: Yes VTE Score: 3 VTE Risk Level: Low Risk - Prophylaxis VTE Prophylaxis Ordered?: Yes Types of VTE Prophylaxis: TEDS Knee High Location of Applied Device: Bilateral Lower Extremeties
[2022-02-25 08:00] VITALS: BP 165/77; PULSE 74; PULSE 75; RESP 16; TEMP 36.8; O2SAT 97
--- NOTE | 2022-02-25 08:15 | PC.NURSE ---
RN aware of elevated bp.
--- NOTE | 2022-02-25 08:59 | HMH.HP ---
*Admission Date: 02/24/22 <Kenna Bean 02/25/22 09:16> *Chief complaint: Chest pain <BeanKenna 02/25/22 09:16> *History of present illness: Mr. Ramírez is a 61-year-old male patient with a history of hypertension, hyperlipidemia, chronic low back pain, headaches, chronic leg pain of unknown etiology, and colon cancer who presented to [facility] emergency room after experiencing ongoing left anterior chest discomfort. He states he has been having chest pain periodically throughout the past week with about 2 hours duration. He denies shortness of breath, nausea, palpitations and diaphoresis. He states he has been under a lot of stress and the pain seemed to be persistent yesterday. This he presented to the emergency room. From there he was admitted for cardiac work-up. Cardiology was consulted this AM. This a.m. patient states he still has some subtle left anterior chest discomfort which he describes as pressure. He denies shortness of breath and nausea. He did sleep some during the night after receiving IV morphine for his leg discomfort. Thus far troponin I's have been negative x3. Chest x-ray revealed no acute processes. <GenevaKenna 02/25/22 09:16> [facility] History Medical History: Reports:: Cancer (hx colon), Gastroesophageal Reflux Disease(GERD), Hiatal Hernia, Hyperlipidemia, Hypertension, Kidney Stones, Migraine Denies:: BPH, Diabetes Mellitus Type 1, Diabetes Mellitus Type 2, Internal Pacemaker, MRSA, Seizures <Kenna Bean 02/25/22 09:16> *Have you ever received a pneumonia vaccine?: No <Kenna Bean 02/25/22 09:16> *Have you received a flu vaccine this season?: No <Kenna Bean 02/25/22 09:16> Other Medical History: Reports: Arthritis, Hormone Therapy. Denies: Blood Transfusion Reaction <Kenna Bean 02/25/22 09:16> Laterality Cases: Left: Arthroscopy Knee, Other, Bilateral: Tonsillectomy <Kenna Bean 02/25/22 09:16> Other Surgeries: Yes: Colonoscopy, Colon Resection, Other. No: Pacemaker <Kenna Bean 02/25/22 09:16> Amputation: No <Kenna Bean - 02/25/22 09:16> Fractures: Yes <BeanKenna 02/25/22 09:16> Comment: L4-5, L5/S1 laminectomy per Dr. Jimenez in November 2013. Right ear surgery with lipoma removal by Dr. García of 2016. ORIF of the left ankle fracture by Dr. Pal in 2019 with removal of hard well in 2019. <GenevaKenna 02/25/22 09:16> - *Social History Smoking Status: Never smoker <GenevaKenna 02/25/22 09:16> Alcohol Intake: never <GenevaKenna 02/25/22 09:16> Substance Use Type: other <GenevaKenna 02/25/22 09:16> *Occupational Status:: retired <GenevaKenna 02/25/22 09:16> Housing: house <GenevaKenna 02/25/22 09:16> Household Members: spouse <GenevaKenna 02/25/22 09:16> *Travel in the last 8 weeks: None <GenevaKenna 02/25/22 09:16> Family Hx:: Cancer, Diabetes, Heart Attack, Hypertension <GenevaKenna 02/25/22 09:16> Review of Systems - Constitutional Denies fever(s), Denies headache(s), Denies lack of energy <GenevaKenna 02/25/22 09:16> - Eyes Denies change in vision <GenevaKenna 02/25/22 09:16> - ENT Denies ear pain, Denies sore throat <BeanKenna 02/25/22 09:16> - *Cardiovascular Reports chest pain, Denies excessive sweating, Denies shortness of breath, Denies rapid, pounding, or irregular heartbeat <GenevaKenna 02/25/22 09:16> - *Respiratory Denies chest congestion, Denies cough, Denies shortness of breath <GenevaKenna 02/25/22 09:16> - *Gastrointestinal Reports heartburn, Denies abdominal pain, Denies bloating, Denies constipation, Denies loose stools, Denies vomiting blood, Denies black, tarry stools, Denies nausea, Denies vomiting <Kenna Bean 02/25/22 09:16> - *Genitourinary Denies difficulty urinating <Kenna Bean 02/25/22 09:16> - *Musculoskeletal Reports other (Bilateral leg pain), Denies abnormal walking <Kenna Bean 02/25/22 09:16> -
--- NOTE | 2022-02-25 09:02 | HMH.CNCARD ---
History of Present Illness Consult date: 02/25/22 Requesting physician: Salvador Meyer Consult reason: chest pain Chief complaint: chest pain History of present illness: This is a 61-year-old white gentleman who presented to the emergency department complaints of chest pain. The patient states that he has been having chest pain for approximately a week. He states that this is a muscle spasm sensation in the left side of his chest with a central pressure sensation. He states that this does not radiate. It is not associated with shortness of breath, nausea or diaphoresis. He states that when the chest pain initially started it would last for hours and then go away but now it is progressively lasting longer and occurring more. He states that the central pressure is now more constant. He states that the chest pain has woken him up at night from his sleep. He states the chest pain is worse with stress. He states that it sometimes improves with rest or ice and heat but does not go away. He denies a history of coronary artery disease. He does have a family history of coronary disease in his grandfather. [facility] History I have reviewed the patient's past medical history: Yes Medical History: Reports:: Cancer (hx colon), Hyperlipidemia, Hypertension, Kidney Stones, Migraine Denies:: BPH, Diabetes Mellitus Type 1, Diabetes Mellitus Type 2, Internal Pacemaker, MRSA, Seizures *Have you ever received a pneumonia vaccine?: No *Have you received a flu vaccine this season?: No Other Medical History: Reports: Arthritis, Hormone Therapy. Denies: Blood Transfusion Reaction Laterality Cases: Left: Arthroscopy Knee, Other, Bilateral: Tonsillectomy Other Surgeries: Yes: Colonoscopy, Colon Resection, Other. No: Pacemaker Amputation: No Fractures: Yes - *Social History Smoking Status: Never smoker Alcohol Intake: never Substance Use Type: other *Occupational Status:: retired Housing: house Household Members: spouse *Travel in the last 8 weeks: None Family Hx:: Heart Attack Meds Home Medications Medication Instructions Recorded Confirmed Type Amlodipine Besylate [Amlodipine 10 mg PO DAILY 02/01/18 02/24/22 History 10mg Tab] Buprenorphine [Butrans] 10 meq TRANSTRACH WEEKLY 02/01/18 02/24/22 History Meloxicam 15 mg PO DAILY 02/01/18 02/24/22 History Pravastatin Sodium [Pravachol] 20 mg PO HS 02/01/18 02/24/22 History Hydrocodone/Acetaminophen [[place] 1 tab PO QID PRN 04/21/19 02/24/22 History 7.5-325 Tablet] Allergies Allergy/AdvReac Type Severity Reaction Status Date / Time Penicillins [PENICILLINS] Allergy Unknown Verified 02/03/22 15:14 Exam Vital signs and Labs for Last 24 Hours: Temp Pulse Resp BP Pulse Ox 98.3 F 75 16 165/77 H 97 02/25/22 08:00 02/25/22 08:00 02/25/22 08:00 02/25/22 08:00 02/25/22 08:00 Laboratory Results - last 24 hr 02/24/22 13:54: WBC 7.4, RBC 4.87, Hgb 14.8, Hct 46.2, MCV 94.8 H, MCH 30.4, MCHC 32.1, RDW 13.3, Plt Count 335, MPV 7.7, Neut % (Auto) 71.3, Lymph % (Auto) 20.2, [place] % (Auto) 6.7, Eos % (Auto) 0.5, Baso % (Auto) 1.3, Neut # (Auto) 5.3, Lymph # (Auto) 1.5, [place] # (Auto) 0.5, Eos # (Auto) 0.0, Baso # (Auto) 0.1 02/24/22 13:54: Sodium 138, Potassium 4.4, Chloride 105, Carbon Dioxide 27, Anion Gap 10.4, BUN 13, Creatinine 1.00, Estimated Creat Clear 99, Estimated GFR 75, Est GFR ( Amer) 91, Glucose 104 H, Calcium 9.2, Troponin I < 0.01 02/24/22 17:39: SARS-CoV-2 (PCR) Not detected, Influenza A Untype (PCR) Not detected, Influenza Type B (PCR) Not detected 02/24/22 17:59: Troponin I < 0.01 02/24/22 21:02: Troponin I < 0.01 I & O for Last 24 hours: Intake & Output 02/22/22 02/23/22 02/24/22 02/25/22 23:59 23:59 23:59 23:59 Intake Total 400 / 520 480 / 480 Balance 400 / 520 480 / 480 Weight 205 lb 203 lb 3 oz Narrative: EKG is sinus rhythm with a rate of 75 bpm. - Constitutional no acute distress, obese - *Routine HEENT Exam Head: Presen
--- NOTE | 2022-02-25 10:45 | PC.NURSE ---
notified dr johnson about patient refusal for heart cath. agreeable to echo but prefers to be discharged to decide on when and where for outpatient testing. echo may be later today, so md is agreeable for patient to discharge. if patient will wait for echo that is preferable, but if he will not wait he may go without it with a plan to have it scheduled as an outpatient.
--- NOTE | 2022-02-25 22:45 | HMH.DCSUM ---
General - General Admission date:: 02/24/22 Discharge date: 02/25/22 HPI HPI: Mr. Ramírez is a 61-year-old male patient with a history of hypertension, hyperlipidemia, chronic low back pain, headaches, chronic leg pain of unknown etiology, and colon cancer who presented to [facility] emergency room after experiencing ongoing left anterior chest discomfort. He stated he had been having chest pain periodically throughout the past week with each episode lasting about 2 hours . He denied shortness of breath, nausea, palpitations and diaphoresis. He stated he had been under a lot of stress and the pain seemed to be persistent yesterday. Thus he presented to the emergency room. From there he was admitted for cardiac work-up. Cardiology was consulted this AM. This a.m. patient stated he still had some subtle left anterior chest discomfort which he describes as pressure. He denied shortness of breath and nausea. He did sleep some during the night after receiving IV morphine for leg discomfort. Thus far troponin I's have been negative x3. Chest x-ray revealed no acute processes. Hospital Course Hospital Course: Patient was seen by cardiology who felt he was having symptoms of unstable angina. Plan was to proceed with a left cardiac catheterization to evaluate for coronary artery disease. Blood pressure was elevated with plans to make adjustments after the cardiac cath. Patient was agreeable to these recommendations initially. Patient then declined the cardiac catheterization procedure. He stated that he felt like the process was progressing too fast and he preferred to proceed with an ischemic evaluation possibly at another facility. He was offered to proceed with outpatient stress testing but he declined. He denied further chest discomfort and troponin's were normal. Thus he was discharged home. He was to follow-up with Dr. Meyer on 02/27/2022. Meds as per medication reconciliation sheet. Objective Vital signs: Temp Pulse Resp BP Pulse Ox 98.3 F 75 16 165/77 H 97 02/25/22 08:00 02/25/22 08:00 02/25/22 08:00 02/25/22 08:00 02/25/22 08:00 Narrative: Exam Vital signs and Labs for Last 24 Hours: Temp Pulse Resp BP Pulse Ox 98.3 F 75 16 165/77 H 97 02/25/22 08:00 02/25/22 08:00 02/25/22 08:00 02/25/22 08:00 02/25/22 08:00 Laboratory Results - last 24 hr 02/24/22 17:39: SARS-CoV-2 (PCR) Not detected, Influenza A Untype (PCR) Not detected, Influenza Type B (PCR) Not detected 02/24/22 17:59: Troponin I < 0.01 02/24/22 21:02: Troponin I < 0.01 <BetsySalvador Andreas - 02/25/22 18:08> Temp Pulse Resp BP Pulse Ox 98.3 F 75 16 165/77 H 97 02/25/22 08:00 02/25/22 08:00 02/25/22 08:00 02/25/22 08:00 02/25/22 08:00 Laboratory Results - last 24 hr 02/24/22 13:54: WBC 7.4, RBC 4.87, Hgb 14.8, Hct 46.2, MCV 94.8 H, MCH 30.4, MCHC 32.1, RDW 13.3, Plt Count 335, MPV 7.7, Neut % (Auto) 71.3, Lymph % (Auto) 20.2, [place] % (Auto) 6.7, Eos % (Auto) 0.5, Baso % (Auto) 1.3, Neut # (Auto) 5.3, Lymph # (Auto) 1.5, [place] # (Auto) 0.5, Eos # (Auto) 0.0, Baso # (Auto) 0.1 02/24/22 13:54: Sodium 138, Potassium 4.4, Chloride 105, Carbon Dioxide 27, Anion Gap 10.4, BUN 13, Creatinine 1.00, Estimated Creat Clear 99, Estimated GFR 75, Est GFR ( Amer) 91, Glucose 104 H, Calcium 9.2, Troponin I < 0.01 02/24/22 17:39: SARS-CoV-2 (PCR) Not detected, Influenza A Untype (PCR) Not detected, Influenza Type B (PCR) Not detected 02/24/22 17:59: Troponin I < 0.01 02/24/22 21:02: Troponin I < 0.01 <Kenna Bean - 02/25/22 09:16> I & O for Last 24 hours: Intake & Output 02/23/22 02/24/22 02/25/22 08/24/22 11:59 11:59 11:59 11:59 Intake Total 880 / 880 Output Total 0 / 0 Balance 880 / 880 Weight 203 lb 3 oz <Salvador Meyer - 02/25/22 18:08> Intake & Output 02/22/22 02/23/22 02/24/22 02/25/22 11:59 11:59 11:59 11:59 Intake Total 88
--- NOTE | 2022-02-25 22:46 | HMH.DCSUM ---
General - General Admission date:: 02/24/22 Discharge date: 02/25/22 HPI HPI: Mr. Avendano is a 61-year-old male patient with a history of hypertension, hyperlipidemia, chronic low back pain, headaches, chronic leg pain of unknown etiology, and colon cancer who presented to [facility] emergency room after experiencing ongoing left anterior chest discomfort. He states he has been having chest pain periodically throughout the past week with about 2 hours duration. He denies shortness of breath, nausea, palpitations and diaphoresis. He states he has been under a lot of stress and the pain seemed to be persistent yesterday. This he presented to the emergency room. From there he was admitted for cardiac work-up. Cardiology was consulted this AM. This a.m. patient states he still has some subtle left anterior chest discomfort which he describes as pressure. He denies shortness of breath and nausea. He did sleep some during the night after receiving IV morphine for his leg discomfort. Thus far troponin I's have been negative x3. Chest x-ray revealed no acute processes. Hospital Course Hospital Course: Patient was admitted with persistent episodes of chest pain. His cardiac enzymes were negative x3. Cardiology was consulted. They wanted to perform a heart cath. The patient initially agreed and then he declined. He felt if he was not having an KS, he did not wish to proceed with a heart cath. He preferred an outpatient ischemic evaluation, but did not know if he wanted this done at [facility] or [place]. He stated he would contact cardiology and let them know what he would like to do after discharge. He was stable to discharge home. Objective Vital signs: Temp Pulse Resp BP Pulse Ox 98.3 F 75 16 165/77 H 97 02/25/22 08:00 02/25/22 08:00 02/25/22 08:00 02/25/22 08:00 02/25/22 08:00 Narrative: - Constitutional no acute distress <Kenna Bean - 02/25/22 09:16> Comments: Appears comfortable - *Routine HEENT Exam Head: Present: normocephalic, atraumatic Eye: Present: PERRL. Absent: conjunctival icterus, scleral injection ENT: Present: mucous membranes moist, oropharynx clear - *Routine Neck Exam Present: supple. Absent: carotid bruit, lymphadenopathy, thyromegaly - Routine Chest/Breast/Axilla Exam Chest wall: Absent: tenderness - *Routine Respiratory Exam Present: CTA bilaterally (Anteriorly and posteriorly) - *Routine Cardiovascular Exam Present: RRR - *Routine Abdominal Exam Present: soft, normoactive bowel sounds. Absent: tenderness, distended - *Routine Rectal Exam Rectal:: deferred - *Routine Genitalia Exam Genitalia:: deferred - *Routine Extremities Exam Present: full ROM, pulses intact. Absent: edema, calf tenderness - *Routine Neurological Exam Present: alert, oriented X3 DS: Diagnosis - Discharge Diagnosis (1) Atypical chest pain Status: Acute (2) Family history of coronary artery disease Status: Acute (3) Hyperlipidemia Status: Acute (4) Hypertension Status: Chronic Discharge Plan - Patient Discharge Instructions ACTIVITY: Continue current activity DIET: continue same diet Patient Instructions: DI for Chest Pain - Follow up Plan Follow up with: Salvador Meyer MD [Primary Care Provider] - 02/27/22 2:55 pm Disposition: Home, Self-Care Condition at discharge:: Stable Home Medications: Home Medications Medication Instructions Recorded Confirmed Type Amlodipine Besylate [Amlodipine 10 mg PO DAILY 02/01/18 02/24/22 History 10mg Tab] Buprenorphine [Butrans] 10 meq TRANSTRACH WEEKLY 02/01/18 02/24/22 History Meloxicam 15 mg PO DAILY 02/01/18 02/24/22 History Pravastatin Sodium [Pravachol] 20 mg PO HS 02/01/18 02/24/22 History Hydrocodone/Acetaminophen [[place] 1 tab PO QIDP PRN 04/21/19 02/25/22 History 7.5-325 Tablet] Prescriptions/Medicat
--- NOTE | 2022-02-26 14:25 | CARE MANAGER ---
Spoke with patient for post-discharge phone interview. He states he has no needs and issues at this time. He is aware of his follow-up appointment with MD in the am.
== END 2022-02-25 12:29 | disposition home or self-care (01) | DRG 313 ==
LOC: ER 15:22 → 2ND 02-25 01:45
PROVIDERS: Admitting Provider Family Medicine; Emergency Provider Emergency Medicine; PCP Family Medicine; Visit Provider Family Medicine
DX: I10 Essential (primary) hypertension (principal); G43.909 Migraine, unspecified, not intractable, without status migrainosus; E78.00 Pure hypercholesterolemia, unspecified; Z82.49 Family history of ischemic heart disease and other diseases of the circulatory system; Z79.899 Other long term (current) drug therapy; Z20.822 Contact with and (suspected) exposure to COVID-19; R07.89 Other chest pain; Z85.038 Personal history of other malignant neoplasm of large intestine; M54.50 Low back pain, unspecified; M79.606 Pain in leg, unspecified; G89.29 Other chronic pain
CPT/HCPCS: 36415; 71046; 80048; 84484; 85025; 93005; 93306; 99285; C9803; G0378; U0003; U0005

== ENCOUNTER → 2023-01-29 16:18 | Outpatient (CLI) | payer OTHER, SELFPAY ==
--- NOTE | 2023-01-29 16:22 | XR_ITS ---
PROCEDURE INFORMATION: Exam: XR Cervical Spine Exam date and time: 01/29/2023 4:28 PM Age: 62 years old Clinical indication: Cervicalgia; Patient HX: Lt sided cervical pain radiating down lt arm x 2-3 wks, nkt. Worsened x last week. PT unable to extend head w/o pain TECHNIQUE: Imaging protocol: Radiologic exam of the cervical spine. Views: 4 or 5 views. COMPARISON: CR XR CERVICAL SPINE W FLEX/EXT 02/04/2022 10:56 AM FINDINGS: Bones/joints: Reversal of normal cervical lordosis progressed from previous exam. Multilevel degenerative facet arthrosis throughout the mid lower cervical spine relatively stable. Moderate degenerative changes C6-C7 with disc space narrowing endplate sclerosis and osteophytic lipping relatively unchanged. Less pronounced anterior degenerative endplate changes C5-C6 also stable. Moderate acquired foraminal stenosis, C4-C5 on the right C5-C6 bilaterally and C5-C6 on the left no evidence of fracture, subluxation or traumatic spondylolisthesis. Soft tissues: Unremarkable. IMPRESSION: Degenerative changes most pronounced at C6-C7 with moderate acquired foraminal stenosis as discussed above.
== END ==
PROVIDERS: PCP Family Medicine; Visit Provider Family Medicine
DX: M54.2 Cervicalgia (principal); M50.323 Other cervical disc degeneration at C6-C7 level
CPT/HCPCS: 72050

== ENCOUNTER → 2023-02-10 15:37 | Outpatient (CLI) | payer MEDICARE, SELFPAY | PROVIDERS: PCP Family Medicine; Visit Provider Family Medicine | DX: M54.12 Radiculopathy, cervical region (principal); M50.323 Other cervical disc degeneration at C6-C7 level ==

== ENCOUNTER 2023-02-27 16:00 | Outpatient (RCR) | payer MEDICARE, SELFPAY ==
--- NOTE | 2023-02-06 10:54 | HMH.PTOPEV ---
PT Outpatient Evaluation Rehab PT Outpatient Evaluation Start: 02/06/23 07:55 Freq: Status: Active Protocol: Document 02/06/23 07:57 KATT (Rec: 02/06/23 10:53 KATT [id number]) E-signed By Diana Garcia, PT Outpatient Therapy Subjective History Subjective History Pt is a 62 year old male that presents to the PT clinic with reports of neck pain and L sided arm pain for ~ 4 weeks. Pt reports that his neck/L arm pain has gotten progressively worse over the past 4 weeks. Pt reports that he was went to the doctor ~ 3-4 times, has taken muscle relaxers, steroids, healthcare management consultant, hot bath, ice pack and OTC medications with little relief . Pt reports he has also tried stretches at home. Pt reports that he has a MRI scheduled on 02/09/23. Pt reports he had a MRI performed that revealed arthritis. Pt denies reports of trauma to his neck. Pt reports that he feels tingling /numbness down the back of his L arm and into his entire hand. Pt reports that he is currently retired. Pt presents with (+) Bakodys sign. R sports athletic trainer: 90lb L sports athletic trainer: 35lb Pt unable to tolerate supine positioning to assess C-spine joint mobility PMH: HTN, HLD, lumbar laminectomy, Chief Complaint Pain,Spasms,Stiff,Weakness, Decreased Manager Child Strength, Decreased Coordination Symptom Type Ache,Sharp,Burning,Numbness, Tingling,Shooting Symptoms Relieved By Rest/Positioning,Heat,Ice,OTC Meds,Prescription Meds, Activity Symptoms Aggravated By Prone,Supine,Sitting,Bending/ Stooping,Lifting Prior Functional Limitations None Current Functional Limitations Reaching,Lifting,Housework, Dressing,Driving,Sleeping, Standing,Sitting,Recreation Activity,Walking,Balance, Bending/Stooping Symptom Description Constant but Variable Level of pain today (0-10) 4 Pain scale - at its best (0-10) 1 Pain scale - at its worst (0-10) 9 Cervical Eval Palpation Cervical Muscles L Cervical Paraspinal,L Suboccipital,L CT Junction,L Upper Trapezius,L Thoracic Paraspinals Cervical/Thoracic Palpation Findings Tenderness,Spasm,Trigger Point ,Muscle Guarding Posture Head/C-Spine Posture Sitting Position Flexed,Rotated Right,Side Bent Right Head/C-Spine Posture Standing Position Flexed,Rotated Right,Side Bent Right Flexibility Deficits Upper Trapezius Muscle Length (L) Moderate Tightness Levaetor Scapulae Muscle Length (L) Moderate Tightness AROM Cervical Spine Extension Active Range of 15 Motion (degrees) Cervical Spine Flexion Active Range of 65 Motion (degrees) Cervical Spine Right Lateral Flexion 45 Active Range of Motion (degrees) Cervical Spine Left Lateral Flexion 45 Active Range of Motion (degrees) Cervical Spine Right Rotation Active 35 Range of Motion (degrees) Cervical Spine Left Rotation Active 35 Range of Motion (degrees) MMT Left Deltoid (C5) 4- Good- Biceps Brachii Strength Grade 5 Normal Wrist Extension Strength Grade 4 Good Triceps Brachii Strength Grade 4 Good Wrist Flexion Strength Grade 4 Good Extensor Pollicis Longus Strength Grade 4 Good Finger Abduction Strength Grade 4 Good DTR Rt Biceps 2+ Lt Biceps 2+ Rt Triceps 2+ Lt Triceps 2+ Altered Sensation Left Comment Dec sensation to light touch grossly throughout L hand Special Test C-Spine Foraminal Compression (Spurling) Negative Right,Positive Left Test Shoulder Abduction Relief Test Positive Left Outpatient Therapy Assessment Impairments Problems/Impairmments Palpation Tenderness,Impaired Range of Motion,Impaired Strength,Impaired Walking, Impaired Standing,Impaired Sitting,Impaired Driving, Impaired Lifting,Impaired Dressing,Impaired Shower/ Bathing,Impaired Household Care,Impaired Bending,Impaired Desk/Computer Activities, Impaired Balance,Subjective C/ O Pain,Impaired Self Care/Self Management Prognosis Rehab Potential Good Clinical Impression Consistent with Diagnosis Yes Consistent with Cervical Radiculopathy Short Term Goals Number of Weeks 2 Increase Range of Motion Yes: L cervical rotation to 55 * Increase Strength Yes: Improve gross LUE MMT by 1/2 grade Return to Recreational Activities Yes: Improve LUE sports athletic trainer strength by >5lbs Decrease Subjective C/O Pain Yes: Less than 3/10 c-spine pain during activity Patient to be Ind w/ HEP Yes Chcf Goals Number of Weeks 6 Increase Range of Motion Yes: Improve C-spine AROM to WNL Increase Strength Yes: Improve LUE strength to 5 /5 grossly Return to Recreational Activities Yes: Improve LUE sports athletic trainer strength to within 15lbs of RUE Decrease Subjective C/O Pain Yes: Less than 2/10 cervical spine pain with activity Improve Self Care/Self Management Yes Patient to be Ind w/ Advanced HEP Yes Outpatient Therapy Plan of Care Treatment Plan May Include Therapeutic Exercise Including Home Yes Exercise Program Manual Therapy Techniques Yes Neuromuscular Re-education Yes Therapeutic Activities to Return to Yes Previous Functional/Work Level ADL/Self Care Education Yes Mechanical Traction Yes Dry Needling Yes Thermal Modalities Yes Electrical Stimulation Yes Ultrasound/Phonophoresis Yes Iontophoresis Yes Vasopneumatic Compression Pump Yes Massage Yes Group Therapy for Medicare Yes Eval/Re-Eval Yes Aquatic Therapy Yes Frequency Times per week 2 Duration Number of Weeks 6 Addendums This patient is a candidate for social No or vocational rehab? Patient/Guardian verbally acknowledges Yes understanding of treatment program and consents to further treatment? Patient/Guardian verbally acknowledges Yes understanding of diagnosis, prognosis and goals for treatment? G -code Required No Eval Complexity PT Charges 76578 - Moderate Complexity Shoulder/Elbow Eval Shoulder Objective Measurements Elbow Objective Measurements PHYSICIAN CERTIFICATION: I certify the specified therapy services for Mike Avendano are required, authorized, and reviewed every 30 days.
== END 2023-02-27 17:00 | disposition home or self-care (01) ==
LOC: PT 16:00
PROVIDERS: PCP Family Medicine; Visit Provider Family Medicine
DX: M54.12 Radiculopathy, cervical region (principal)
CPT/HCPCS: 97010; 97014; 97035; 97110; 97140; 97163; 97530; G0283

== ENCOUNTER → 2023-03-13 12:40 | Outpatient (CLI) | payer MEDICARE, SELFPAY ==
--- NOTE | 2023-03-13 12:44 | MR_ITS ---
FINAL REPORT CLINICAL HISTORY: CERVICAL RADICULOPATHY SEVERE PAIN DOWN LEFT ARM COMPARISON: None FINDINGS: Multiplanar MR imaging of the cervical spine was performed without contrast. On the sagittal T2-weighted images, disc degeneration is seen throughout. There is degenerative endplate change at multiple levels. There is no evidence of fracture. The vertebral alignment is normal. The cervical spinal cord has an unremarkable appearance without evidence of mass, edema or syrinx. The cervicomedullary junction is normal. C2-3: There is no significant canal stenosis or neural foraminal narrowing. C3-4: An annular bulge is present with uncovertebral osteophytes. There is mild bilateral neural foraminal narrowing. A small central protrusion is present as well. C4-5: Disc osteophyte complex is present. A right paracentral disc protrusion indents the thecal sac, produces right C5 nerve root impingement and moderate right neural foraminal narrowing. C5-6: Disc osteophyte complex is present with a left foraminal extruded disc extending beyond the osteophytes. This produces left C6 nerve root impingement, moderate right and severe left neural foraminal narrowing. There is mild canal stenosis with an AP canal diameter of 9 mm. C6-7: A disc osteophyte complex is present with a small right paracentral disc protrusion and moderate bilateral neural foraminal narrowing. C7-T1: There is no significant canal stenosis or neural foraminal narrowing. IMPRESSION: Multilevel cervical disc disease, most severe at the C4-5 and C5-6 levels. Reviewed, Interpreted and Dictated by Jose J Ureña III, MD Transcribed by Kendra Lopez Authenticated and [facility]
== END ==
PROVIDERS: PCP Family Medicine; Visit Provider Family Medicine
DX: M54.6 Pain in thoracic spine (principal); M54.12 Radiculopathy, cervical region
CPT/HCPCS: 72141; 76376

== ENCOUNTER → 2023-06-03 11:25 | Outpatient (CLI) | payer MEDICARE, SELFPAY ==
[2023-06-03 12:43] LABS: Alanine Aminotransferase 32 U/L (12-78); Albumin Level 4.7 g/dl (3.5-5.0); Albumin/Globulin Ratio 1.5 (1.1-1.8); Alkaline Phosphatase 82 U/L (38-126); Anion Gap 12.1 mEq/L (5-15); Aspartate Amino Transferase 33 U/L (17-59); Bilirubin,Total 0.7 mg/dl (0.2-1.3); Blood Urea Nitrogen 15 mg/dl (9-20); Calcium 9.1 mg/dl (8.4-10.2); Carbon Dioxide 25 mmol/L (22.0-30.0); Chloride 105 mmol/L (98-107); Chol/HDL Ratio 5.4 (1-3.5); Cholesterol 188 mg/dl (140-200); Estimated Glomerular Filt Rate 75 ml/min (>60); GFR (African American) 91 ML/MIN (>60); Globulin 3.2 g/dL (1.3-3.2); Glucose 115 mg/dl (74-100); HDL Cholesterol 35 mg/dl (40-60); Potassium 4.1 mmoL/L (3.5-5.1); Sodium 138 mmol/L (136-145); Total Protein,Serum 7.9 g/dl (6.3-8.2); Triglycerides 268 mg/dl (30-150); VLDL Cholesterol 54 mg/dL (0-40)
[2023-06-03 12:54] LABS: Direct LDL Cholesterol 99.87 mg/dL (100-129)
[2023-06-03 13:14] LABS: Prostate Specific Ag Screen 0.3 ng/ml (0.0-4.0)
[2023-06-03 13:16] LABS: Hemoglobin A1C 5.9 % (4.0-6.0)
== END ==
PROVIDERS: PCP Family Medicine; Visit Provider Family Medicine
DX: R73.9 Hyperglycemia, unspecified (principal); E78.5 Hyperlipidemia, unspecified; Z12.5 Encounter for screening for malignant neoplasm of prostate
CPT/HCPCS: 36415; 80053; 80061; 83036; G0103

== ENCOUNTER → 2023-06-08 13:00 | Outpatient (CLI) | payer MEDICARE, SELFPAY ==
[2023-06-08 15:45] LABS: Amphetamine/Metha Screen,Urine Negative ng/ml (<1000)
[2023-06-08 15:46] LABS: Barbiturates Screen,Urine Negative ng/ml (<200); Benzodiazepines Screen,Urine Negative ng/ml (<200)
[2023-06-08 15:47] LABS: Cannabinoid Screen,Urine Negative ng/ml (<50); Cocaine Screen,Urine Negative ng/ml (<300)
[2023-06-08 15:50] LABS: Phencyclidine Screen,Urine Negative ng/ml (<25)
[2023-06-08 16:07] LABS: Methadone Screen,Urine Negative ng/ml (<300)
[2023-06-08 16:15] LABS: Opiate Screen,Urine Positive ng/ml (<300)
== END ==
PROVIDERS: PCP Family Medicine; Visit Provider Family Medicine
DX: G89.4 Chronic pain syndrome (principal); F32.9 Major depressive disorder, single episode, unspecified
CPT/HCPCS: 80305

== ENCOUNTER 2024-07-01 15:02 | Emergency (ER) | payer MEDICARE, SELFPAY ==
[2024-07-01 15:20] VITALS: BP 150/92; PULSE 94; RESP 18; TEMP 37.4; O2SAT 98; BMI 28.4
--- NOTE | 2024-07-01 15:38 | EXP.UTC ---
Discharge Plan Disposition Patient Disposition: Home, Self-Care Condition: Good Prescriptions Prescriptions: New doxycycline hyclate 100 mg capsule 100 mg PO BID Qty: 20 0RF guaifenesin [Mucinex] 1,200 mg tablet extended release 12hr 1,200 mg PO Q12H PRN (Reason: congestion) Qty: 20 0RF prednisone 20 mg tablet 20 mg PO BID 5 Days Qty: 10 0RF albuterol sulfate 90 mcg/actuation HFA aerosol inhaler 2 puff inhalation Q6H PRN (Reason: shortness of breath or wheezing) Qty: 8.5 0RF No Action meloxicam 15 tablet 15 mg PO DAILY amlodipine 10 MG tablet 10 mg PO DAILY pravastatin 20 MG tablet 20 mg PO HS buprenorphine 1 EACH patch weekly 10 meq TRANSTRACH WEEKLY Rx Instructions: hydrocodone-acetaminophen 1 EACH tablet 1 tab PO QIDP PRN (Reason: pain) ramipril 2.5 mg capsule 2.5 mg PO DAILY Referrals Follow up/Referrals: Salvador Meyer MD [Primary Care Provider] - See instructions Activity Restrictions/Add. Instructions Additional Instructions/Restrictions: Start antibiotic today. Be sure to complete entire prescription even if feeling better Monitor temp. Tylenol every 4 hours as needed and / or ibuprofen every 6 hours as needed ( As long as your primary care physician has told you that it ok to take both. For fever/aches/pains ER if no less than 101 despite Tylenol or Motrin Humidifier/vaporizer or hot steamy shower Inhaler every 4-6 hours as needed like we discussed. If unsure how to use it, ask pharmacist to demonstrate how. Should help open airways and improve cough, wheezing, and shortness of breath Mucinex for your cough Be sure to drink lots of water. *Start steroid today. Helps with inflammation therefore, cough and wheezing. Follow directions on the package. Reviewed side effects. Patient reports taking them before. Follow up IMMEDIATELY for new or worsening of symptoms OR no noticeable improvement over the next 48-72 hours. 911 immediately for any life threatening symptoms such as chest pain or difficulty breathing Clinical Impressions Clinical Impression: Bronchitis Instructions Patient Instructions: Acute Bronchitis, Doxycycline Print Language Print Language: Portuguese Discharge ED Provider: Junie Krishna [facility] [place] General Stated complaint: congestion, sore throat, fever Mode of Arrival: Ambulatory Source of Information: Patient Limitations: No Limitations Time Seen by Provider: 07/01/24 15:38 Description of Symptoms (Recalled from Triage Doc. by RN): PATIENT C/O CHEST CONGESTION, PRODUCTIVE COUGH WITH DARK BROWN SPUTUM, SORE THROAT AND FEVER X 4 DAYS HEENT Symptoms (Recalled from RN notes): Yes Resp Symptoms (Recalled from RN notes): Yes Skin Symptoms (Recalled from RN notes): No MS Symptoms (Recalled from RN notes): No Functional Status (Recalled from RN notes): WNL History of Present Illness Provider Complaint: Patient states he has been having cough, sinus congestion and pressure and at times coughing up thick mucous States he was worried if he didn't come in and get something to help Related Data Home Medications ?Medication ?Instructions ?Recorded ?Confirmed amlodipine 10 mg tablet 10 mg PO DAILY High blood pressure 02/01/18 07/01/24 buprenorphine 10 mcg/hour weekly 10 meq Transtracheal WEEKLY drug 02/01/18 07/01/24 transdermal patch withdrawl meloxicam 15 mg tablet 15 mg PO DAILY Arthritis 02/01/18 07/01/24 pravastatin 20 mg tablet 20 mg PO HS Cholesterol 02/01/18 07/01/24 hydrocodone 7.5 mg-acetaminophen 1 tab PO QIDP PRN pain 04/21/19 07/01/24 325 mg tablet ramipril 2.5 mg capsule 2.5 mg PO DAILY 07/01/24 07/01/24 Previous Rx's ?Medication ?Instructions ?Recorded albuterol sulfate 90 mcg/actuation 2 puff inhalation Q6H PRN 07/01/24 aerosol inhaler shortness of breath or wheezing #8.5 grams doxycycline hyclate 100 mg capsule 100 mg PO BID #20 caps 07/01/24 guaifenesin 1,200 mg tablet, 1,200 mg PO Q12H PRN congestion 07/01/24 extended release 12 hr (Mucinex) #20 tabs prednisone 20 mg tablet 20 mg PO BID 5 days #10 tabs 07/01/24 Allergies Allergy/AdvReac Type Severity Reaction Status Date / Time Penicillins (PENICILLINS) Allergy Unknown Verified 02/03/22 15:14 Worker's Comp Is this a Worker's Comp case?: [facility] Disclaimer: The information contained in this section may have been updated after the patient was seen, as this information can be updated by other users. Social History Smoking Status: Never smoker second hand exposure: No alcohol intake: never substance use type: other current occupational status: retired Travel in the last 8 weeks: None household members: spouse housing: house current occupation: current occupational exposures/hazards: No caffeine: No Have you lived/traveled outside [place] in past 30 days?: No Contact w/someone who lives/traveled outside US past 30 days?: No Exposure to someone with infectious disease in past 14 days?: No Do you have a fever (greater than 100.4 F or 38 C)?: Yes Have you tested positive for COVID-19: No Exposed to someone with COVID-19 in past 14 days?: No Do you have a sore throat?: Yes Do you have a cough?: No Do you have any weakness?: No Do you have any diarrhea?: No Are you experiencing any unusual bleeding?: No Do you have any muscle aches/pain?: No Do you have any abdominal pain?: No Are you experiencing loss of taste or smell?: No ROS Obtained: Yes All systems reviewed & no additional complaints except as documented and Yes Systems reviewed as appropriate & no additional complaints except as documented Constitutional Constitutional: Reports system reviewed and no additional complaints, except as documented and Reports as per HPI ENT Ears, Nose, Mouth, and Throat: Reports system reviewed and no additional complaints, except as documented, Reports as per HPI, Reports sinus pain and Reports sinus pressure Cardiovascular Cardiovascular: Reports system reviewed and no additional complaints, except as documented and Reports as per HPI Respiratory Respiratory: Reports system reviewed and no additional complaints, except as documented, Reports as per HPI, Denies shortness of breath, Reports chest congestion and Reports cough Gastrointestinal Gastrointestingal: Reports system reviewed and no additional complaints, except as documented and as per HPI Physical Exam General General appearance: alert and in no apparent distress ENT ENT exam: Present mucous membranes moist Expanded ENT Exam Nose exam: Present sinus tenderness Chest Chest inspection: Present normal inspection and symmetric chest wall rise Respiratory Respiratory exam: Present normal lung sounds bilaterally; Absent respiratory distress or wheezes Cardiovascular Cardiovascular exam: Present regular rate, normal rhythm and normal heart sounds Abdominal Exam Abdominal exam: Present soft and normal bowel sounds; Absent distention or tenderness Neurological Exam Neurological exam: Present alert, oriented X3 and normal gait Medical Decision Making Medical Records Screening: Per USPSTF and CDC recommendations, given the prevalence of disease in our region, it is our hospital?s policy to screen for HIV and viral Hepatitis for all patients aged 18 and over and those with ongoing risk factors. Devendra Inquiry Pt receiving controlled substance: No Devendra was queried for this patient: No Vital Signs: 07/01/24 15:20 Temperature 99.3 F Temperature Source Oral Pulse Rate [Left Brachial] 94 H Respiratory Rate 18 Blood Pressure [Left Arm] 150/92 H Blood Pressure Mean [Left Arm] 111 Blood Pressure Source [Left Arm] Automatic Cuff Blood Pressure Position [Left Arm] Sitting 02 Sat by Pulse Oximetry 98 Oxygen Delivery Method Room Air Lab Data Lab results reviewed: Yes I reviewed the patient's lab results. Medical Decision Narrative: discussed CXR patient declined at this time
[2024-07-01 15:57] VITALS: BP 150/92; PULSE 94; RESP 18; TEMP 37.4; O2SAT 98
== END 2024-07-01 16:02 | disposition home or self-care (01) ==
PROVIDERS: Emergency Provider Nurse Practitioner; PCP Family Medicine
DX: J20.9 Acute bronchitis, unspecified (principal)
CPT/HCPCS: 99213; G0381

== ENCOUNTER 2025-04-20 10:34 | Outpatient (CLI) | payer MEDICARE, SELFPAY ==
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
--- OUTSIDE RECORDS SUMMARY | 2024-08-02 11:15 | XMS_ITS ---
Author Organization [facility] Address [address] [place], [place] [id number] Care Team Providers Care Historic Site Administrator Name Role Phone Stevan Meyer Primary Care Provider Allergies Allergen (clinical drug ingredient) Drug/Non Drug Allergy documented on EMR Reaction Allergy Type Onset Date Status bisoprolol Bisoprolol drowsiness Drug Allergy Acti ve Penicillin Unknown Drug Allergy Active Substance with 0-clstonf-1-methylglut aryl-coenzyme A reductase inhibitor mechanism of action (substance) Statins muscle pain Drug Allergy Active REASON FOR VISIT ckup & refills Medications Medication SIG (Take, Route, Frequency, Duration) Notes Start Date End Date Status Butrans 10 MCG/HR 1 PATCH transdermall y once a week 08/02/2024 Active HYDROcodone-Acetaminophen 7.5-325 MG 1 tab(s) orally every 4 hours prn 07/14/2024 Active Pravastatin Sodium 20 MG 1 tablet Orally Once a day Active Ciclopirox 8 % 1 application Oxidation Operator ally At Bed Time 06/04/2023 Active Meloxicam 15 MG TAKE 1 TABLET EVERY DAY Active Melatonin 10 MG 1 tab(s) orally once a day (at bedtime) Active Norvasc 10 MG 1 tab(s) orally once a day Active Ramipril 2.5 MG 1 cap(s) orally once a day Active Vital Signs Blood pressure systolic 140 mm Hg 08/02/19 25 Blood pressure diastolic 80 mm Hg 025 Heart Rate 88 /min 08/02/2024 Height 68.50 in 08/02/2024 Weight 203.0 lbs 08/02/2024 BMI 30.41 kg/m2 08/02/2024 Encounters Encounter Location Date Provider Diagnosis [facility] [address] [facility] [address] [facility] [address] [place] [id number] 08/02/2024 Stevan Meyer HTN (hypertension) I 10 ; Dyslipidemia E78.5 ; Chronic pain syndrome G89.4 ; History of colon cancer Z85.038 ; Hyperglycemia R73.9 and Screening for prostate cancer Z12.5 Assessments Encounter Date Diagnosis (ICD Code) Assessment Notes Treatment Notes Treatment Clinical Notes Section Notes 08/02/2024 HTN (hypertension) (ICD-10 - I10) 08/02/2024 Dyslipidemia (ICD-10 - E78.5) 08/02/2024 Chronic pain syndrome (ICD-10 - G89.4) 08/02/2024 History of colon cancer (ICD-10 - Z85.038) 08/02/2024 Hyperglycemia (ICD-10 - R73.9) 08/02/2024 Screening for prostate cancer (ICD-10 - Z12.5) Plan Of Treatment Medication Medication Name Sig Start Date Stop Date Notes Butrans 10 MCG/HR 1 PATCH transdermall y once a week 08/02/2024 HYDROcodone-Acetaminophen 7.5-325 MG 1 tab(s) orally every 4 hours prn 07/14/2024 Pravastatin Sodium 20 MG 1 tablet Orally Once a day Meloxicam 15 MG TAKE 1 TABLET EVERY DAY Norvasc 10 MG 1 tab(s) orally once a day Ramipril 2.5 MG 1 cap(s) orally once a day Pending Test Test Name Order Date H-Lipid Panel 08/02/2024 H-CMP 08/02/2024 H-Glycohemoglobin A1C 08/02/2024 H-PSA 08/02/2024 H-Vitamin A 08/02/2024 Next Appt Details Follow Up: 6 Months, Reason: Provider Name:Stevan Adrian, 10/17/2025 01:30:00 PM, [address] [facility] [address] [facility], [address], [place], [id number], Progress Notes * CHARITO YOUNGBLOOD:1960 ( 65 yo M)Acc No.[id number]:08/02/2024 Progress Notes Patient: DERRICK OVALLES Provider: Stevna Meyer M.D. :1960 A ge:64 Y S ex:Male Date:08/02/2024 Address:[facility] [place], [id number] Subjective: * Chief Complaints: * 1 . Ckup & refills. * HPI: C ardiology: The pt is here today for a check up. Pt states he does check his BP at home and it has been running the 130's/80's. Pt states he is needing refills sent to [place] [facility]. Denies : Chest Pain. D enies : Short of Breath. D enies : Dizziness. D enies : Palpitations. C onstitutional: His chronic leg pain is overall about the same, perhaps slightly worse with colder weather. He is less active in the winter and has gained some weight. * ROS: D ERMATOLOGY: no R carolee. [...] disc disease/C5-6 disc herniation. * Surgical History: Violet lucio , Lipoma over right mastoid 03/2010, L4-5,L5-S1 laminectomy - Dr. Dickerson 11/15/13, laparoscopic partial right hemicolectomy - Dr Morley @ [facility] 01/2016, right ear surgery-lipoma removed-Dr García 11/2016, C-scope - normal 02/2017, stent placed on right side-Dr Larson 02/03/2018, ORIF left ankle fracture/ Dr. Cavazos 11/2018, Removal of hardware, left ankle 04/2019. * Hospitalization/Major Diagno stic Procedure: H ER-kidney stones 02/01/2018, [facility] ER- Low back pain 11/24/2020. * Family [...] ouside [place]: yes. * Medications: T aking Melatonin 10 MG Tablet 1 tab(s) orally once a day (at bedtime) , Taking Ciclopirox 8 % Solution 1 application Externally At Bed Time , Taking Norvasc 10 MG Tablet 1 tab(s) orally once a day , Taking Ramipril 2.5 MG Capsule 1 cap(s) orally once a day , Taking Meloxicam 15 MG Tablet TAKE 1 TABLET EVERY DAY , Taking HYDROcodone-Acetaminophen 7.5-325 MG Tablet 1 tab(s) orally every 4 hours prn , Taking Pravastatin Sodium 20 MG Tablet 1 tablet Orally Once a day , Taking Butrans 10 MCG/HR Patch Weekly 1 PATCH transdermally once a week , Discontinued Omeprazole 40 MG Capsule Delayed Release 1 cap(s) orally once a day , Medication List reviewed and reconciled with the patient * Allergies: P enicillin, Statins: muscle pain - Side Effects, Bisoprolol: drowsiness - Side Effects. Objective: * Vitals: W t:203.0, Temp:98.8, BP:140/80, HR:88, Nurse:CHANCE, Ht: 68.50, BMI:30.41. * Examination: C ardiology: General Appearance: A ffect is good. Moves fairly easily onto the exam table.. H EENT: u nremarkable. C arotid upstroke: n ormal, no bruits. H eart sounds: R RR, normal S1, S2. M urmur, click , gallop: n one. L ungs: clear, no rales or wheezes. A bdomen: p ositive BS, soft, nontender. E xtremities:?no leg edema or calf tenderness. Assessment: * Assessment: 1. H TN (hypertension) - I10 (Primary) 2 . D yslipidemia - E78.5 3 . C hronic pain syndrome - G89.4 4 . H istory of colon cancer - Z85.038 5 . H yperglycemia - R73.9 6 . S creening for prostate cancer - Z12.5 Plan: * Treatment: 2. D yslipidemia Continue Pravastatin Sodium Tablet, 20 MG, 1 tablet, Orally, Once a day. 3. C hronic pain syndrome Continue Meloxicam Tablet, 15 MG, TAKE 1 TABLET EVERY DAY; C ontinue HYDROcodone-Acetaminophen Tablet, 7.5-325 MG, 1 tab(s), orally, every 4 hours prn, Refills 0; C ontinue Butrans Patch Weekly, 10 MCG/HR, 1 PATCH, transdermally, once a week. * Labs: * L ab: H-Lipid Panel L ab: H-Vitamin A L ab: H-PSA L ab: H-CMP L ab: H-Glycohemoglobin A1C * Procedure Codes: G 2211 Complex e/m visit add on * Follow Up: 6 Months * Images: Billing Information: * Visit Code: 16390 Office Visit, Est Pt., Level 4. * Procedure Codes: G2211 Complex e/m visit add on. * Electronic signature of Stevan Meyer MD on 04/20/2025 at 10:50 AM EDT Sign off status: Pending * Provider: Stevan Meyer M.D. Date: 0 08/02/2024 Generated for Miguel Angel webb/Efraín/eTallensmitting on: 1 10:50 AM EDT History and Physical Notes * HPI (History of Present Illness) Category Sub-Category Detail Notes Category Not es Cardiology Short of Breath Chest Pain Palpitations Dizziness Examination Category Sub-Category Detail Notes Category Not es Cardiology Lungs: clear, no rales or wheezes HEENT: unremarkable Heart sounds: RRR, normal S1, S2 Abdomen: positive BS, soft, n ontender Carotid upstroke: normal, no bruits Extremities: no leg edema or calf tenderness Murmur, click , gallop: none General Appearance: Affect is good. Move s fairly easily onto the exam table.
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
--- OUTSIDE RECORDS SUMMARY | 2025-04-20 10:50 | XMS_ITS | Clinical Summary ---
Author Organization [facility] Address [address] [place] [id number] Care Team Providers Care International Operations Manager Name Role Phone Salvador Meyer MD Primary Care Provider Allergies Active Allergy Reactions Criticality Noted Date Comments Penicillins Hives High 02/19/2018 Medications meloxicam (MOBIC) 15 MG tablet Take 15 mg by mouth Daily. Active pravastatin (PRAVACHOL) 20 MG tablet Take 20 mg by mouth Every Night. Active amLODIPine (NORVASC) 10 MG tablet Take 20 mg by mouth Daily. Active HYDROcodone-don taminophen (NORCO) 7.5-325 MG per tablet Take 1 tablet by mouth Every 6 (Six) Hours As Needed for Moderate Pain . Active Buprenorphine (BUTRANS) 10 MCG/HR patch weekly Place 10 mcg/hr on the skin as directed by provider 1 (One) Time Per Week. Active Glucosamine 500 MG capsule Take 2,000 mg by mouth Daily. Active melatonin 5 MG tablet tablet Take 10 mg by mouth At Night As Needed. Active CBD (cannabidiol) oral oil Take 10 drops by mouth Daily. Active HYDROmorphone (DILAUDID) 2 MG tablet Take 1 tablet by mouth Every 6 (Six) Hours As Needed for pain. 15 tablet 02/19/2018 1:48 PM EDT 02/19/2018 Active sulfamethoxazol e-trimethoprim (BACTRIM DS,SEPTRA DS) 800-160 MG per tablet Take 1 tablet by mouth 2 (Two) Times a Day. 14 tablet 02/19/2018 1:48 PM EDT 02/19/2018 Active Active Problems No known active problems Resolved Problems Problem Noted Date Diagnosed Date Resolved Date Ureteral stone 02/19/2018 02/19/2018 Social History Tobacco Use Types Packs/Day Years Used Date Smoking Tobacco: Never Smokeless Tobacco: Never Alcohol Use Standard Drinks/Week Comments Yes 1 (1 standard drink = 0.6 oz pur e alcohol) Abuse Screen Answer Date Recorded Unsafe at Home or Work/School Not on file Feels Threatened by Someone? Not on file 03/2023 Does Anyone Keep You from Co ntacting Others or Doint Things Outside the Home? Not on file 04/13/2023 Physical Sign of Abuse Present Not on file 1 Housing Stability Answer Date Recorded Current Living Arrangements Not on file 03/2023 Potentially Unsafe Housing Conditions Not on ye e 04/13/2023 Family and Community Support Answer Jhony e Recorded Help with Day-to-Day Activities Not on file 04/13/2023 Lonely or Isolated Not on file 04/13/2023 Employment Answer Date Recorded Do you want help finding or keeping work or a davida b? Not on file 04/13/2023 Disabilities Answer Date Recorded Concentrating, Remembering, or Making Decisions Difficulty Not on file 04/13/2023 Doing Errands Independently Difficulty Not on fi le 04/13/2023 Education Answer Date Recorded Help with school or training? Not on file Preferred Language Not on file 04/13/2023 Sex and Gender Information Value Date Recorded Sex Assigned at Not on file Legal Sex Male 11:31 AM EDT Gender Identity Not on file Sexual Orientation Not on file Last Filed Vital Signs Vital Sign Reading Time Taken Comments Blood Pressure 118/72 02/19/2018 1:45 PM EDT Pulse 82 02/19/2018 1:45 PM EDT Temperature 36.4 C (97.5 F) 02/19/2018 1:45 PM EDT Respiratory Rate 16 02/19/2018 1:45 PM EDT Oxygen Saturation 97% 02/19/2018 1:45 PM EDT Inhaled Oxygen Concentration - - Weight 89.8 kg (198 lb) 02/19/2018 9:15 AM EDT Height 172.7 cm (5' 8 ) 02/19/2018 9:15 AM EDT Body Mass Index 30.11 02/19/2018 9:15 AM EDT Plan of Treatment Health Maintenance Due Date Last Done Comments ANNUAL PHYSICAL 1960 HEPATITIS C SCREENING 1960 TDAP/TD VACCINES (1 - Tdap) 1977 COLOGUARD 2003 COLON CANCER SCREENING 5 YEAR SIGMOIDOSCOPY 2003 COLONOSCOPY 2003 [address] CANCER SCREENING 2003 CT COLONOGRAPHY 2003 FECAL OCCULT BLOOD TEST 2003 FIT Testing (1 year) 2003 Pneumococcal Vaccine 50+ (1 of 1 - PCV) 02/29/2008 ZOSTER VACCINE (1 of 2) 02/29/2008 AAA SCREEN ONCE 2023 INFLUENZA VACCINE 02/03/2025 COVID-19 Vaccine (1 - season) 2025 Medical Devices Implanted Type Area Adult Literacy Instructor Device Identifier Shelf Expiration Date Model / Serial / Lot Stent Percuflx No Gw 4.8x26 - [id number] Implanted:Qty : 1 on 02/19/2018 by Pete Larson MD at [facility] Implant Right: Ureter [employer] [id number] / / [id number] Insurance [facility] PPO Care Teams International Operations Manager Relationship Specialty Start Date End Date Salvador Meyer MD [address] [facility] [address] [facility] [address] [place] [address] PCP - General Family Medicine 02/19/18
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
--- OUTSIDE RECORDS SUMMARY | 2025-04-20 10:51 | XMS_ITS | Clinical Summary ---
Author Organization Healthcare Address [address] [place] [address] Care Team Providers Care Molded Goods Spot Picker Name Role Phone Salvador Meyer MD Primary Care Provider [phone] Medications ramipril (Altace) 2.5 MG capsule Take 2.5 mg by mouth 1 (one) time each day. Active amLODIPine (Norvasc) 10 MG tablet Take 10 mg by mouth 1 (one) time each day. Active meloxicam (Mobic) 15 MG tablet Take 15 mg by mouth 1 (one) time each day. Active pravastatin (Pravachol) 20 MG tablet Take 20 mg by mouth 1 (one) time each day. Active buprenorphine (Butrans) 10 MCG/HR Place on the skin. Active GLUCOSAMINE-CRISTOBAL DROITIN PO Take 1 tablet by mouth 3 (three) times a day. Active cholecalciferol (Vitamin D-3) 25 MCG (1000 UT) tablet Take by mouth 1 (one) time each day. Active omeprazole (PriLOSEC) [address] capsule Take 20 mg by mouth 1 (one) time each day. Do not crush or chew. Active Active Problems No known active problems Social History Tobacco Use Types Packs/Day Years Used Date Smoking Tobacco: Never Smokeless Tobacco: Never Tobacco Cessation:Counseling Given: Not Answered Sex and Gender Information Value Date Recorded Sex Assigned at Not on file Legal Sex Male 8:46 PM EDT Gender Identity Not on file Sexual Orientation Not on file Last Filed Vital Signs Vital Sign Reading Time Taken Comments Blood Pressure 144/87 2022 1:37 PM EDT Pulse 86 2022 1:37 PM EDT Temperature - - Respiratory Rate - - Oxygen Saturation 96% 2022 1:37 PM EDT Inhaled Oxygen Concentration - - Weight 91 kg (200 lb 9.9 oz) 2022 1:33 PM EDT Height - - Body Mass Index - - Plan of Treatment Health Maintenance Due Date Last Done Comments [facility]-Depression Screening 1960 [facility]-/Child/Adol SDOH Screenings 1960 [facility]- SDOH Screenings 02/29/1976 [facility]-Adult SDOH Screenings 02/29/1976 CT Colonography 2003 Colonoscopy 2003 FIT-DNA 2003 FIT 2003 FOBT 2003 Sigmoidoscopy 2003 [facility]-Colorectal Cancer Screening 2003 [facility]-Pneumococcal Vaccine: 50 + Years (1 of 1 - PCV) 02/29/2008 [facility]-Zoster Vaccines (1 of 2) 02/29/2008 [id number] Vaccine (3 - season) 2025 06/04/2021, 09/12/2020 [facility]-Influenza Vaccine (#1) 2025 [facility]-DTaP,Tdap,and Td Vaccine s (2 - Td or Tdap) 11/18/2028 11/18/2018 [facility]-RSV Vaccine: 60+ Years o r (1 - 1-dose 75+ series) 2033 HPV Vaccines Aged Out No longer eligi ble based on patient's age to complete this topic [facility]-HIB Vaccines Aged Out No longer e ligible based on patient's age to complete this topic [facility]-Hepatitis A Vaccines Aged Out No longer eligible based on patient's age to complete this topic [facility]-IPV Vaccines Aged Out No longer e ligible based on patient's age to complete this topic [facility]-Rotavirus Vaccines Aged Out No lo nger eligible based on patient's age to complete this topic Insurance Care Teams Molded Goods Spot Picker Relationship Specialty Start Date End Date Salvador Meyer MD [address] [place] [id number] PCP - General 11/16/20
[2025-04-20 12:14] LABS: Alanine Aminotransferase 26 U/L (12-78); Albumin Level 4.4 g/dl (3.5-5.0); Albumin/Globulin Ratio 1.6 (1.1-1.8); Alkaline Phosphatase 84 U/L (38-126); Anion Gap 16.3 mEq/L (5-15); Aspartate Amino Transferase 25 U/L (17-59); Bilirubin,Total 0.8 mg/dl (0.2-1.3); Blood Urea Nitrogen 19 mg/dl (9-20); Calcium 9.2 mg/dl (8.4-10.2); Carbon Dioxide 24 mmol/L (22.0-30.0); Chloride 103 mmol/L (98-107); Cholesterol 164 mg/dl (140-200); Creatinine,Serum 1.10 mg/dl (0.66-1.25); Estimated Glomerular Filt Rate 67 ml/min (>60); GFR (African American) 81 ML/MIN (>60); Globulin 2.7 g/dL (1.3-3.2); Glucose 110 mg/dl (74-100); HDL Cholesterol 38 mg/dl (40-60); Potassium 4.3 mmoL/L (3.5-5.1); Sodium 139 mmol/L (136-145); Total Protein,Serum 7.1 g/dl (6.3-8.2); Triglycerides 179 mg/dl (30-150)
[2025-04-20 12:46] LABS: Hemoglobin A1C 6.0 % (4.0-6.0)
== END 2025-04-20 23:59 | disposition home or self-care (01) ==
LOC: LAB 10:34
PROVIDERS: PCP Family Medicine; Visit Provider Family Medicine
DX: E78.5 Hyperlipidemia, unspecified (principal); I10 Essential (primary) hypertension; R73.9 Hyperglycemia, unspecified; Z12.5 Encounter for screening for malignant neoplasm of prostate
CPT/HCPCS: 80053; 80061; 83036; G0103